=== PATIENT | male | born 1940 | race Caucasian/White ===

== ENCOUNTER 2017-06-27 14:50 | Outpatient (CLI) | payer MEDICARE ==
--- NOTE | 2017-06-27 16:19 | ULT ---
LEFT UPPER EXTREMITY DOPPLER VENOUS ULTRASOUND: Indication: Edema, erythema of left upper extremity. Recent surgery. FINDINGS: Grayscale, color, and spectral analysis was performed of the deep venous system of the left upper ext remity which reveals flow and compressibility without evidence of venous thrombosis. IMPRESSION: No DVT identified within the imaged left upper extremity. POS: WILLIE
== END 2017-06-27 14:51 | disposition home or self-care (01) ==
LOC: ULT 14:50
PROVIDERS: ATTEND Internal Medicine Cardiovascular Disease
DX: R60.9 Edema, unspecified (principal); R20.0 Anesthesia of skin

== ENCOUNTER 2019-02-11 08:22 | Outpatient (CLI) | payer MEDICARE ==
[2019-02-11] MEDS ORDERED: Iopamidol 370 76% 100 ML VIAL ONE (10:01)
--- NOTE | 2019-02-11 11:16 | CT ---
CT ABDOMEN AND PELVIS WITH AND WITHOUT IV CONTRAST: HISTORY: Prostate cancer. FINDINGS: The lung bases are unremarkable. There are coronary artery calcifications. The patient is post cholec ystectomy. The liver, spleen, pancreas and adrenal glands are normal. No calculi are seen in the kidneys, ureters or urinary bladder. No hydroureteronephrosis is seen on e ither side. Post contrast images demonstrate tiny, low density lesions in the kidneys, likely cysts. There is normal contrast excretion into the ureters and urinary bladder. There is mild enlargement of the prostate gland with thickening of the wall of the urinary bladder. No free air, free fluid or lymphadenopathy is seen in the abdomen or pelvis. There are vascular calci fications without evidence of aneurysmal dilatation of the abdominal aorta. There are small bilateral fat-containing inguinal hernias present. Multilevel degenerative changes are present in the spine. T here is a sclerotic focus in the left pedicle of the T10 vertebra. There is colonic diverticulosis. A duodenal diverticulum is present. IMPRESSION: 1. No CT evidence of urinary tract calculi or obstruction. 2. Probable tiny renal cysts. 3. Prostatic enlargement with urinary bladder wall thickening. 4. Colonic diverticulosis. 5. Duodenal diverticulum. 6. Sclerotic focus in the left pedicle of the T10 vertebra. Bone island versus sclerotic metastasis. Further evaluation with bone scan is recommended. POS: OFF
--- NOTE | 2019-02-11 12:38 | NM ---
Radionucleotide bone scan HISTORY: Prostate cancer. Abnormal CT scan. FINDINGS: Heterogeneous uptake at the shoulders and right foot with the appearance of degenerative ch anges. No focal areas of increased radiotracer uptake are apparent. With particular attention to the left T10 pedicle where sclerotic lesion is present on recent CT exam . IMPRESSION: No evidence of metastatic disease. No abnormalities of the T10 pedicles apparent.
== END 2019-02-11 08:23 | disposition home or self-care (01) ==
LOC: CT 08:22
PROVIDERS: ATTEND Urology
DX: C61 Malignant neoplasm of prostate (principal); N40.0 Benign prostatic hyperplasia without lower urinary tract symptoms; N32.89 Other specified disorders of bladder; K57.30 Diverticulosis of large intestine without perforation or abscess without bleeding; K57.10 Diverticulosis of small intestine without perforation or abscess without bleeding; M89.9 Disorder of bone, unspecified
CPT/HCPCS: 74178; 78306; 82565; A9503; Q9967

== ENCOUNTER 2020-05-24 06:43 | Outpatient (CLI) | payer MEDICARE ==
[2020-05-24 18:27] LABS: SARS-CoV-2 PCR by NAA Not Detected (NotDetected)
== END 2020-05-24 06:44 | disposition home or self-care (01) ==
LOC: LABBT 06:43
PROVIDERS: ATTEND Internal Medicine Gastroenterology
DX: Z01.812 Encounter for preprocedural laboratory examination (principal); Z20.822 Contact with and (suspected) exposure to COVID-19
CPT/HCPCS: U0003; U0005; 87635

== ENCOUNTER 2020-05-27 06:22 | Day surgery (SDC) | payer MEDICARE ==
[2020-05-25 12:28] VITALS: BMI 26.6
[2020-05-27 07:21] LABS: #Basophils 0.1 thou/uL (0.0-0.2); #Eosinphils 0.1 thou/uL (0.0-0.7); #Lymphocytes 0.1 thou/uL (1.20-3.40); #Monocytes 0.8 thou/uL (0.11-0.59); #Neutrophils 7.6 thou/uL (1.40-6.50); %Eosinophils 0.6 % (0.0-10.0); %Lymphocytes 1.3 % (21.0-51.0); %Monocytes 8.7 % (0.0-10.0); %Neutrophils 88.5 % (42.0-75.0); Hemoglobin 15.3 g/dL (14.0-18.0); Mean Corpuscular HGB CONC 33.7 g/dL (32.0-36.0); Mean Corpuscular Hemoglobin 31.1 pg (27.0-31.0); Mean Corpuscular Volume 92.2 fL (78.0-98.0); Mean Platelet Volume 5.6 fL (7.4-10.4); Platelet Count 274 thou/uL (130-400); RBC Distribution Width 12.9 % (11.5-14.5); Red Blood Cell (RBC) Count 4.91 mill/uL (4.70-6.10); White Blood Cell (WBC) Count 8.6 thou/uL (4.8-10.8)
[2020-05-27] MEDS ORDERED: Lidocaine 1% PF 5 ML VIAL ONE (08:54)
[2020-05-27] MEDS ORDERED: ePHEDrine 50 MG/ML VIAL ONE (08:54)
[2020-05-27] MEDS ORDERED: PHENYLEPHRINE-NS 100 MCG/ML 10 ML SYRINGE ONE (08:54)
--- NOTE | 2020-05-27 09:55 | OP ---
DATE OF PROCEDURE: 05/27/2020 PROCEDURE PERFORMED: Colonoscopy. PREOPERATIVE DIAGNOSIS: Hematochezia. DESCRIPTION OF PROCEDURE: Informed consent was obtained from the patient. He was sedated with total intravenous anesthesia. The rectal exam was performed and was normal. The colonoscope was advanced to the terminal ileum without difficulty. The mucosa of the terminal ileum was normal. The colonic mucosa revealed diverticulosis through the transverse, descending, and sigmoid colon. There was radiation telangiectasias and a large patch on the anterior surface of the rectal mucosa. This was not actively bleeding. Retroflexed views in the rectum revealed one small hemorrhoid. The remainder of the colonic mucosa was normal. IMPRESSION: 1. Moderate diverticulosis scattered throughout the colon. 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 His hemoglobin was 15.3 today. This requires no further intervention. 3. Small internal hemorrhoid. RECOMMENDATIONS: 1. He should not require future colonoscopy for screening based on age. 2. Follow up in GI clinic as needed. Job ID: [id number]
== END 2020-05-27 10:20 | disposition home or self-care (01) ==
LOC: SDC 06:22
PROVIDERS: ATTEND Internal Medicine Gastroenterology
PROC: 0DJD8ZZ Inspection of Lower Intestinal Tract, Via Natural or Artificial Opening Endoscopic (ICD-10-PCS; principal; 2020-05-27)
DX: K62.7 Radiation proctitis (principal); K92.1 Melena; K57.30 Diverticulosis of large intestine without perforation or abscess without bleeding; K64.8 Other hemorrhoids; I11.0 Hypertensive heart disease with heart failure; I50.9 Heart failure, unspecified; E11.9 Type 2 diabetes mellitus without complications; Z79.82 Long term (current) use of aspirin; Z79.84 Long term (current) use of oral hypoglycemic drugs; Z79.899 Other long term (current) drug therapy; Z95.1 Presence of aortocoronary bypass graft
CPT/HCPCS: 36415; 85025; J3490

== ENCOUNTER 2020-08-31 08:54 | Outpatient (CLI) | payer MEDICARE ==
[2020-08-31 14:50] LABS: INR-International Normal Ratio 0.9; Prothrombin Time 10.1 sec (9.5-12.1)
[2020-08-31 15:08] LABS: Anion Gap 16 mmol/L (10-20); BUN (Urea Nitrogen) 28 mg/dL (8.4-25.7); Calc. Creatinine Clearance 0 mL/min (70-130); Calcium 9.4 mg/dL (7.8-10.44); Carbon Dioxide 25 mmol/L (23-31); Chloride 95 mmol/L (98-107); Glucose 75 mg/dL (83-110); Potassium 5.5 mmol/L (3.5-5.1); Sodium 130 mmol/L (136-145)
[2020-08-31 15:43] LABS: Hemoglobin 14.1 g/dL (13.5-17.5); Mean Corpuscular HGB CONC 32.8 g/dL (32.0-36.0); Mean Corpuscular Hemoglobin 29.2 pg (27.0-33.0); Mean Platelet Volume 8.6 fl (7.4-10.4); Platelet Count 281 10x3/uL (150-450); RBC Distribution Width 15.2 % (11.5-14.5); Red Blood Cell (RBC) Count 4.83 10x6/uL (4.32-5.72); White Blood Cell (WBC) Count 5.4 10x3/uL (3.5-10.5)
[2020-09-01 04:50] LABS: SARS-CoV-2 PCR by NAA Not Detected (NotDetected)
== END 2020-08-31 08:55 | disposition home or self-care (01) ==
LOC: LABBT 08:54
PROVIDERS: ATTEND Surgery
DX: Z01.818 Encounter for other preprocedural examination (principal); Z20.822 Contact with and (suspected) exposure to COVID-19; M54.16 Radiculopathy, lumbar region; M48.062 Spinal stenosis, lumbar region with neurogenic claudication
CPT/HCPCS: 80048; 85027; 85610; 85730; 93005; U0003; U0005; 87635; 93010

== ENCOUNTER 2020-09-03 07:57 | Inpatient (IN) | payer MEDICARE ==
[2020-09-03] MEDS ORDERED: Thrombin 5000 UNITS/5 ML VIAL ONE (09:55)
[2020-09-03] MEDS ORDERED: Fentanyl 100 MCG/2 ML VIAL ONE ×3 (10:06→14:06)
[2020-09-03] MEDS ORDERED: Glycopyrrolate 0.2 MG/ML 5 ML SYRINGE ONE (10:36)
[2020-09-03] MEDS ORDERED: Lidocaine 1% PF 5 ML VIAL ONE (10:36)
[2020-09-03] MEDS ORDERED: Ondansetron PF 4 MG/2 ML Vial ONE (10:36)
[2020-09-03] MEDS ORDERED: PHENYLEPHRINE-NS 100 MCG/ML 10 ML SYRINGE ONE (10:36)
[2020-09-03] MEDS ORDERED: PROPOFOL 200 MG/20 ML VIAL ONE (10:36)
[2020-09-03] MEDS ORDERED: Dexamethasone 20 MG/5 ML VIAL ONE (10:36)
[2020-09-03] MEDS ORDERED: Bisacodyl 10 MG SUPP PR PRN (11:03)
[2020-09-03] MEDS ORDERED: Morphine 2 MG/ML VIAL SLOW IVP PRN (11:03)
[2020-09-03] MEDS ORDERED: Milk Of Magnesia 30 ML UDCUP PO PRN (11:03)
[2020-09-03] MEDS ORDERED: Acetaminophen/Codeine 30-300mg Tablet PO PRN (11:03)
[2020-09-03] MEDS ORDERED: Mag-Al 1200 mg/1200 mg/30 ML UDCUP PO PRN (11:03)
[2020-09-03] MEDS ORDERED: Acetaminophen 500 MG TAB PO PRN (11:06)
[2020-09-03] MEDS ORDERED: Promethazine HCl 12.5 MG in Sodium Chloride 0.9% 50 ML IVPB PRN (13:18)
[2020-09-03] MEDS: Sodium Chloride 0.9% 1,000 ML IV SCH (16:20)
[2020-09-03] MEDS: tiZANidine HCl 4 MG TAB PO PRN (16:24)
[2020-09-03] MEDS: Morphine 4 MG/ML VIAL SLOW IVP PRN (16:31)
[2020-09-03 17:35] VITALS: BMI 21.9
[2020-09-03] MEDS: CEFAZOLIN 2 GM in Premix Bag 1 BAG IVPB SCH (17:36)
[2020-09-03] MEDS: Ondansetron ODT 4 MG TAB SL PRN (18:37)
[2020-09-03] MEDS: traMADol HCl 50 MG TAB PO PRN (18:37)
[2020-09-03] MEDS: HYDROcodone/Acetaminophen 7.5/325 mg Tablet PO PRN (20:34)
[2020-09-03] MEDS: Potassium Chloride 20 MEQ TAB PO SCH (20:45)
[2020-09-03] MEDS: Rosuvastatin 5 MG TAB PO SCH (20:45)
[2020-09-03] MEDS: Pramipexole Di-HCl 0.25 MG TAB PO SCH (20:45)
[2020-09-03] MEDS: Magnesium Oxide 250 MG TAB PO SCH (20:45)
[2020-09-03] MEDS: Ezetimibe 10 MG TAB PO SCH (20:45)
[2020-09-03] MEDS: metFORMIN 500 MG TAB PO SCH (20:45)
[2020-09-03] MEDS: glipiZIDE 5 MG TAB PO SCH (20:46)
[2020-09-03] MEDS: Latanoprost 0.005% Ophth Soln 2.5 ml Bottle EA EYE SCH (22:23)
[2020-09-04] MEDS: traMADol HCl 50 MG TAB PO PRN ×3 (00:23→14:05)
[2020-09-04] MEDS: CEFAZOLIN 2 GM in Premix Bag 1 BAG IVPB SCH (00:26)
[2020-09-04] MEDS: HYDROcodone/Acetaminophen 7.5/325 mg Tablet PO PRN ×3 (03:12→23:51)
[2020-09-04] MEDS: Sodium Chloride 0.9% 1,000 ML IV SCH ×2 (03:15→15:41)
[2020-09-04 06:06] LABS: #Eosinphils 0.1 thou/uL (0.0-0.7); #Lymphocytes 0.2 thou/uL (1.20-3.40); #Monocytes 0.9 thou/uL (0.11-0.59); #Neutrophils 7.2 thou/uL (1.40-6.50); %Basophils 0.1 % (0.0-1.0); %Eosinophils 0.7 % (0.0-10.0); %Lymphocytes 2.5 % (21.0-51.0); %Monocytes 10.6 % (0.0-10.0); %Neutrophils 86.1 % (42.0-75.0); Hemoglobin 12.5 g/dL (14.0-18.0); Mean Corpuscular HGB CONC 33.8 g/dL (32.0-36.0); Mean Corpuscular Hemoglobin 30.8 pg (27.0-31.0); Mean Corpuscular Volume 90.9 fL (78.0-98.0); Mean Platelet Volume 5.9 fL (7.4-10.4); Platelet Count 250 thou/uL (130-400); RBC Distribution Width 13.7 % (11.5-14.5); Red Blood Cell (RBC) Count 4.07 mill/uL (4.70-6.10); White Blood Cell (WBC) Count 8.4 thou/uL (4.8-10.8)
[2020-09-04] MEDS: Levothyroxine 150 MCG TAB PO SCH (06:09)
[2020-09-04] MEDS ORDERED: Dextrose 5% in Water 1,000 ML IV PRN (06:30)
[2020-09-04] MEDS ORDERED: Dextrose 50% Abboject 50 ML SYRINGE IVP PRN (06:30)
[2020-09-04 08:55] LABS: Anion Gap 12 mmol/L (10-20); BUN (Urea Nitrogen) 19 mg/dL (8.4-25.7); Calc. Creatinine Clearance 67 mL/min (70-130); Calcium 8.9 mg/dL (7.8-10.44); Carbon Dioxide 22 mmol/L (23-31); Chloride 97 mmol/L (98-107); Glucose 141 mg/dL (83-110); Potassium 4.3 mmol/L (3.5-5.1); Sodium 127 mmol/L (136-145)
[2020-09-04] MEDS: Metolazone 5 MG TAB PO SCH (09:11)
[2020-09-04] MEDS: Tamsulosin HCl 0.4 MG CAP PO SCH (09:11)
[2020-09-04] MEDS: glipiZIDE 5 MG TAB PO SCH ×2 (09:11→20:10)
[2020-09-04] MEDS: Potassium Chloride 20 MEQ TAB PO SCH ×2 (09:12→20:11)
[2020-09-04] MEDS: metFORMIN 500 MG TAB PO SCH ×2 (09:12→20:10)
[2020-09-04] MEDS: Spironolactone 25 MG TAB PO SCH (09:13)
[2020-09-04] MEDS: tiZANidine HCl 4 MG TAB PO PRN (09:32)
[2020-09-04] MEDS: Torsemide 100 MG TAB PO SCH (11:39)
[2020-09-04] MEDS: Magnesium Oxide 250 MG TAB PO SCH (20:10)
[2020-09-04] MEDS: Rosuvastatin 5 MG TAB PO SCH (20:10)
[2020-09-04] MEDS: Pramipexole Di-HCl 0.25 MG TAB PO SCH (20:11)
[2020-09-04] MEDS: Ezetimibe 10 MG TAB PO SCH (20:11)
[2020-09-04] MEDS: Latanoprost 0.005% Ophth Soln 2.5 ml Bottle EA EYE SCH (20:19)
[2020-09-04] MEDS: Melatonin 3 MG TAB PO PRN (23:51)
[2020-09-05] MEDS: Levothyroxine 150 MCG TAB PO SCH (05:31)
[2020-09-05] MEDS: Morphine 4 MG/ML VIAL SLOW IVP PRN (05:40)
[2020-09-05] MEDS: Ondansetron ODT 4 MG TAB SL PRN (06:00)
[2020-09-05] MEDS: Sodium Chloride 0.9% 1,000 ML IV SCH (07:16)
[2020-09-05] MEDS: tiZANidine HCl 4 MG TAB PO PRN (09:34)
[2020-09-05] MEDS: Torsemide 100 MG TAB PO SCH (09:34)
[2020-09-05] MEDS: Sodium Chloride 1 GM TAB PO SCH ×2 (09:34→20:06)
[2020-09-05] MEDS: Spironolactone 25 MG TAB PO SCH (09:35)
[2020-09-05] MEDS: metFORMIN 500 MG TAB PO SCH ×2 (09:35→19:26)
[2020-09-05] MEDS: glipiZIDE 5 MG TAB PO SCH ×2 (09:35→19:26)
[2020-09-05] MEDS: Potassium Chloride 20 MEQ TAB PO SCH ×2 (09:36→19:25)
[2020-09-05] MEDS: Tamsulosin HCl 0.4 MG CAP PO SCH (09:36)
[2020-09-05 12:06] LABS: Anion Gap 13 mmol/L (10-20); BUN (Urea Nitrogen) 21 mg/dL (8.4-25.7); Calc. Creatinine Clearance 62 mL/min (70-130); Calcium 8.5 mg/dL (7.8-10.44); Carbon Dioxide 26 mmol/L (23-31); Chloride 90 mmol/L (98-107); Glucose 128 mg/dL (83-110); Potassium 3.4 mmol/L (3.5-5.1); Sodium 126 mmol/L (136-145)
[2020-09-05] MEDS: Sodium Chloride 256 MEQ in Sterile Water Injection 936 ML IV SCH (15:36)
[2020-09-05] MEDS: Acetaminophen 325 MG TAB PO PRN (15:36)
[2020-09-05] MEDS: traMADol HCl 50 MG TAB PO PRN (17:36)
[2020-09-05] MEDS: HYDROcodone/Acetaminophen 7.5/325 mg Tablet PO PRN (19:23)
[2020-09-05] MEDS: Rosuvastatin 5 MG TAB PO SCH (19:25)
[2020-09-05] MEDS: Pramipexole Di-HCl 0.25 MG TAB PO SCH (19:25)
[2020-09-05] MEDS: Latanoprost 0.005% Ophth Soln 2.5 ml Bottle EA EYE SCH (19:25)
[2020-09-05] MEDS: Ezetimibe 10 MG TAB PO SCH (19:25)
[2020-09-05] MEDS: Magnesium Oxide 250 MG TAB PO SCH (19:26)
[2020-09-05 20:24] LABS: Sodium 128 mmol/L (136-145)
[2020-09-06] MEDS: HYDROcodone/Acetaminophen 7.5/325 mg Tablet PO PRN ×4 (01:57→22:58)
[2020-09-06] MEDS: Acetaminophen 325 MG TAB PO PRN (03:08)
[2020-09-06] MEDS: traMADol HCl 50 MG TAB PO PRN ×2 (03:08→20:11)
[2020-09-06] MEDS: Levothyroxine 150 MCG TAB PO SCH (05:04)
[2020-09-06 05:55] LABS: Anion Gap 11 mmol/L (10-20); BUN (Urea Nitrogen) 22 mg/dL (8.4-25.7); Calc. Creatinine Clearance 69 mL/min (70-130); Calcium 8.5 mg/dL (7.8-10.44); Carbon Dioxide 28 mmol/L (23-31); Chloride 93 mmol/L (98-107); Glucose 110 mg/dL (83-110); Potassium 3.3 mmol/L (3.5-5.1); Sodium 129 mmol/L (136-145)
[2020-09-06] MEDS: Morphine 4 MG/ML VIAL SLOW IVP PRN ×2 (07:03→22:58)
[2020-09-06] MEDS: Ondansetron ODT 4 MG TAB SL PRN ×2 (07:03→23:01)
[2020-09-06] MEDS: Sodium Chloride 256 MEQ in Sterile Water Injection 936 ML IV SCH (08:30)
[2020-09-06] MEDS: Potassium Chloride 20 MEQ TAB PO SCH ×2 (10:15→20:12)
[2020-09-06] MEDS: Spironolactone 25 MG TAB PO SCH (10:16)
[2020-09-06] MEDS: Sodium Chloride 1 GM TAB PO SCH ×2 (10:16→20:12)
[2020-09-06] MEDS: metFORMIN 500 MG TAB PO SCH ×2 (10:16→20:11)
[2020-09-06] MEDS: Tamsulosin HCl 0.4 MG CAP PO SCH (10:16)
[2020-09-06] MEDS: glipiZIDE 5 MG TAB PO SCH ×2 (10:16→20:11)
[2020-09-06] MEDS: Metolazone 5 MG TAB PO SCH (10:21)
[2020-09-06] MEDS: Torsemide 100 MG TAB PO SCH (10:25)
[2020-09-06] MEDS: Magnesium Oxide 250 MG TAB PO SCH (20:11)
[2020-09-06] MEDS: tiZANidine HCl 4 MG TAB PO PRN (20:11)
[2020-09-06] MEDS: Pramipexole Di-HCl 0.25 MG TAB PO SCH (20:11)
[2020-09-06] MEDS: Rosuvastatin 5 MG TAB PO SCH (20:11)
[2020-09-06] MEDS: Latanoprost 0.005% Ophth Soln 2.5 ml Bottle EA EYE SCH (20:12)
[2020-09-06] MEDS: Ezetimibe 10 MG TAB PO SCH (20:12)
[2020-09-06] MEDS: Melatonin 3 MG TAB PO PRN (22:58)
[2020-09-07] MEDS: Levothyroxine 150 MCG TAB PO SCH (03:48)
[2020-09-07] MEDS: HYDROcodone/Acetaminophen 7.5/325 mg Tablet PO PRN ×3 (03:56→17:17)
[2020-09-07 05:57] LABS: Anion Gap 10 mmol/L (10-20); BUN (Urea Nitrogen) 20 mg/dL (8.4-25.7); Calc. Creatinine Clearance 72 mL/min (70-130); Calcium 8.6 mg/dL (7.8-10.44); Carbon Dioxide 31 mmol/L (23-31); Chloride 90 mmol/L (98-107); Glucose 79 mg/dL (83-110); Potassium 3.7 mmol/L (3.5-5.1); Sodium 127 mmol/L (136-145)
[2020-09-07] MEDS: Sodium Chloride 1 GM TAB PO SCH (10:03)
[2020-09-07] MEDS: Spironolactone 25 MG TAB PO SCH (10:04)
[2020-09-07] MEDS: Tamsulosin HCl 0.4 MG CAP PO SCH (10:04)
[2020-09-07] MEDS: Potassium Chloride 20 MEQ TAB PO SCH (10:04)
[2020-09-07] MEDS: metFORMIN 500 MG TAB PO SCH (10:04)
[2020-09-07] MEDS: glipiZIDE 5 MG TAB PO SCH (10:04)
[2020-09-07] MEDS: Torsemide 100 MG TAB PO SCH (11:01)
[2020-09-07] MEDS: traMADol HCl 50 MG TAB PO PRN (12:52)
[2020-09-07 15:23] LABS: Anion Gap 12 mmol/L (10-20); BUN (Urea Nitrogen) 19 mg/dL (8.4-25.7); Calc. Creatinine Clearance 72 mL/min (70-130); Calcium 9.3 mg/dL (7.8-10.44); Carbon Dioxide 32 mmol/L (23-31); Chloride 89 mmol/L (98-107); Glucose 65 mg/dL (83-110); Potassium 3.8 mmol/L (3.5-5.1); Sodium 129 mmol/L (136-145)
[2020-09-07 16:05] VITALS: BP 104/68; TEMP 98.3
== END 2020-09-07 17:47 | DRG 516 ==
LOC: SDC 07:57 → SURG B 11:03
PROVIDERS: ADMIT Surgery; ATTEND Surgery
PROC: 01NB0ZZ Release Lumbar Nerve, Open Approach (ICD-10-PCS; principal; 2020-09-03)
DX: M48.062 Spinal stenosis, lumbar region with neurogenic claudication (principal); E22.2 Syndrome of inappropriate secretion of antidiuretic hormone; M54.16 Radiculopathy, lumbar region; I11.0 Hypertensive heart disease with heart failure; E11.9 Type 2 diabetes mellitus without complications; Z90.49 Acquired absence of other specified parts of digestive tract; E87.6 Hypokalemia; L89.159 Pressure ulcer of sacral region, unspecified stage; D64.9 Anemia, unspecified
CPT/HCPCS: 36415; 36416; 72020; 80048; 83735; 85025; 93970; A4217; J0690; J1100; J2270; J2405; J2550; J2704; J3010; J3370; Q0162

== ENCOUNTER 2020-09-11 21:13 | Inpatient (IN) | payer MEDICARE ==
[2020-09-11 21:56] LABS: #Lymphocytes 0.2 thou/uL (1.20-3.40); #Monocytes 0.6 thou/uL (0.11-0.59); #Neutrophils 8.7 thou/uL (1.40-6.50); %Eosinophils 0.2 % (0.0-10.0); %Lymphocytes 2.4 % (21.0-51.0); %Monocytes 6.1 % (0.0-10.0); %Neutrophils 91.3 % (42.0-75.0); Hemoglobin 14.2 g/dL (14.0-18.0); Mean Corpuscular HGB CONC 31.4 g/dL (32.0-36.0); Mean Corpuscular Hemoglobin 28.2 pg (27.0-31.0); Mean Corpuscular Volume 89.7 fL (78.0-98.0); Mean Platelet Volume 5.8 fL (7.4-10.4); Platelet Count 322 thou/uL (130-400); RBC Distribution Width 13.6 % (11.5-14.5); Red Blood Cell (RBC) Count 5.02 mill/uL (4.70-6.10); White Blood Cell (WBC) Count 9.6 thou/uL (4.8-10.8)
[2020-09-11 22:08] LABS: Bilirubin Negative (Negative); Blood, Urine Negative (Negative); Clarity Turbid (Clear); Glucose, Urine (Dipstick) Normal (Negative); Ketone, Urine 20 mg/dL (Negative); Leukocyte Negative Leu/uL (Negative); Nitrite Negative (Negative); Protein, Urine (Dipstick) 10 mg/dL (Neg-Trace); Specific Gravity, Urine 1.016 (1.002-1.036); Urobilinogen Normal mg/dL (Less than 2); pH, Urine 8.5 (5.0-9.0)
[2020-09-11 22:18] LABS: ALT (SGPT) 15 U/L (8-55); AST (SGOT) 27 U/L (5-34); Albumin 3.4 g/dL (3.4-4.8); Alkaline Phosphatase 123 U/L (40-110); Anion Gap 16 mmol/L (10-20); BUN (Urea Nitrogen) 17 mg/dL (8.4-25.7); Bilirubin, Total 0.5 mg/dL (0.2-1.2); Calc. Creatinine Clearance 0 mL/min (70-130); Calcium 10.2 mg/dL (7.8-10.44); Carbon Dioxide 27 mmol/L (23-31); Chloride 90 mmol/L (98-107); Globulin 3.3 g/dL (2.4-3.5); Glucose 136 mg/dL (83-110); Potassium 5.9 mmol/L (3.5-5.1); Protein, Total 6.7 g/dL (5.8-8.1); Sodium 127 mmol/L (136-145)
[2020-09-11] MEDS ORDERED: Diltiazem HCl 125 MG, Admixture Fee 1 EACH in Sodium Chloride 0.9% 100 ML IVPB SCH (22:30)
[2020-09-11] MEDS ORDERED: Vancomycin 1 GM/200 ML BAG ONE (22:32)
[2020-09-11] MEDS ORDERED: Cefepime 2 GM VIAL ONE (22:32)
[2020-09-11] MEDS ORDERED: Dextrose 50% Abboject 50 ML SYRINGE SLOW IVP PRN (23:21)
[2020-09-11] MEDS ORDERED: Ondansetron PF 4 MG/2 ML Vial IVP PRN (23:21)
[2020-09-11] MEDS ORDERED: Bisacodyl 5 MG TAB PO PRN (23:21)
[2020-09-11] MEDS ORDERED: Dextrose 5% in Water 1,000 ML IV PRN (23:21)
[2020-09-11] MEDS ORDERED: Ondansetron ODT 4 MG TAB PO PRN (23:21)
[2020-09-11] MEDS ORDERED: Guaifenesin DM 100-10/5 ML UDCUP PO PRN (23:21)
[2020-09-11] MEDS ORDERED: Calcium Carbonate 500 MG ChewTAB PO PRN (23:21)
[2020-09-11] MEDS ORDERED: Loperamide HCl 2 MG CAP PO PRN (23:21)
[2020-09-11] MEDS ORDERED: Senokot S 8.6-50 MG TAB PO PRN (23:21)
[2020-09-11] MEDS ORDERED: Diltiazem 125 MG in Sodium Chloride 0.9% 100 ML IVPB SCH (23:30)
[2020-09-12] MEDS ORDERED: Dextrose 50% Abboject 50 ML SYRINGE SLOW IVP SCH (01:00)
[2020-09-12] MEDS ORDERED: Insulin Regular 300 UNITS/3 ML VIAL IVP SCH (01:00)
[2020-09-12] MEDS: Sodium Chloride 0.9% 1,000 ML IV SCH ×2 (01:00→20:17)
[2020-09-12 01:09] LABS: Lactic Acid 2.3 mmol/L (0.5-2.2)
[2020-09-12 01:25] LABS: Troponin I Less than 0.010 ng/mL (< 0.028)
[2020-09-12 01:52] LABS: Creatinine, Urine 47.1 mg/dL (63-166)
[2020-09-12 01:54] LABS: Anion Gap 17 mmol/L (10-20); BUN (Urea Nitrogen) 16 mg/dL (8.4-25.7); Calc. Creatinine Clearance 79 mL/min (70-130); Calcium 9.5 mg/dL (7.8-10.44); Carbon Dioxide 19 mmol/L (23-31); Chloride 98 mmol/L (98-107); Glucose 70 mg/dL (83-110); Potassium 5.7 mmol/L (3.5-5.1); Sodium 128 mmol/L (136-145)
[2020-09-12 03:13] LABS: SARS-CoV-2 NAA Rapid Test Not Detected (NotDetected)
[2020-09-12 04:10] LABS: Lactic Acid 2.8 mmol/L (0.5-2.2)
[2020-09-12 04:17] LABS: ALT (SGPT) 12 U/L (8-55); AST (SGOT) 22 U/L (5-34); Albumin 2.7 g/dL (3.4-4.8); Alkaline Phosphatase 94 U/L (40-110); Anion Gap 14 mmol/L (10-20); BUN (Urea Nitrogen) 15 mg/dL (8.4-25.7); Bilirubin, Total 0.4 mg/dL (0.2-1.2); Calc. Creatinine Clearance 81 mL/min (70-130); Calcium 9.3 mg/dL (7.8-10.44); Carbon Dioxide 21 mmol/L (23-31); Chloride 99 mmol/L (98-107); Globulin 2.4 g/dL (2.4-3.5); Glucose 70 mg/dL (83-110); Potassium 4.8 mmol/L (3.5-5.1); Protein, Total 5.1 g/dL (5.8-8.1); Sodium 129 mmol/L (136-145)
[2020-09-12 05:00] LABS: Hemoglobin 11.3 g/dL (14.0-18.0); Mean Corpuscular HGB CONC 31.7 g/dL (32.0-36.0); Mean Corpuscular Hemoglobin 28.6 pg (27.0-31.0); Mean Corpuscular Volume 90.2 fL (78.0-98.0); Mean Platelet Volume 5.8 fL (7.4-10.4); Platelet Count 291 thou/uL (130-400); RBC Distribution Width 13.6 % (11.5-14.5); Red Blood Cell (RBC) Count 3.96 mill/uL (4.70-6.10); White Blood Cell (WBC) Count 7.8 thou/uL (4.8-10.8)
[2020-09-12] MEDS: Levothyroxine 150 MCG TAB PO SCH (06:01)
[2020-09-12 07:55] LABS: Troponin I Less than 0.010 ng/mL (< 0.028)
[2020-09-12 08:22] LABS: Lactic Acid 2.1 mmol/L (0.5-2.2)
[2020-09-12] MEDS ORDERED: Furosemide 40 MG/4 ML VIAL SLOW IVP SCH (08:45)
[2020-09-12] MEDS: Enoxaparin Sodium 40 MG/0.4 ML SYRINGE SC SCH (09:13)
[2020-09-12] MEDS: Tamsulosin HCl 0.4 MG CAP PO SCH (09:13)
[2020-09-12] MEDS: Famotidine 20 MG TAB PO SCH ×2 (09:13→20:51)
[2020-09-12] MEDS: Vancomycin HCl 750 MG in Sodium Chloride 0.9% 250 ML 250 ML IVPB SCH ×2 (10:53→20:18)
[2020-09-12] MEDS: Cefepime 1 GM in Sodium Chloride 0.9% 100 ML IVPB SCH ×2 (12:39→22:59)
[2020-09-12 17:23] LABS: Free T4 (Free Thyroxine) 1.75 ng/dL (0.70-1.48)
[2020-09-12] MEDS: Rosuvastatin 5 MG TAB PO SCH (20:51)
[2020-09-12] MEDS: Ezetimibe 10 MG TAB PO SCH (20:51)
[2020-09-12] MEDS: Latanoprost 0.005% Ophth Soln 2.5 ml Bottle EA EYE SCH (20:52)
[2020-09-12] MEDS: Pramipexole Di-HCl 0.25 MG TAB PO SCH (20:52)
[2020-09-12] MEDS: Melatonin 3 MG TAB PO PRN (22:56)
[2020-09-12] MEDS: Acetaminophen 325 MG TAB PO PRN (22:56)
[2020-09-12] MEDS: HumaLOG 300 UNITS/3 ML VIAL SC PRN (23:17)
[2020-09-13] MEDS: Sodium Chloride 0.9% 1,000 ML IV SCH ×2 (01:27→16:59)
[2020-09-13] MEDS: Acetaminophen 325 MG TAB PO PRN ×2 (03:23→21:08)
[2020-09-13] MEDS: Levothyroxine 150 MCG TAB PO SCH (06:35)
[2020-09-13 08:28] LABS: #Eosinphils 0.1 thou/uL (0.0-0.7); #Lymphocytes 0.3 thou/uL (1.20-3.40); #Monocytes 0.6 thou/uL (0.11-0.59); #Neutrophils 5.7 thou/uL (1.40-6.50); %Basophils 0.1 % (0.0-1.0); %Eosinophils 1.2 % (0.0-10.0); %Lymphocytes 3.9 % (21.0-51.0); %Monocytes 8.5 % (0.0-10.0); %Neutrophils 86.3 % (42.0-75.0); Mean Corpuscular HGB CONC 32.5 g/dL (32.0-36.0); Mean Corpuscular Hemoglobin 29.3 pg (27.0-31.0); Mean Corpuscular Volume 90.3 fL (78.0-98.0); Mean Platelet Volume 5.8 fL (7.4-10.4); Platelet Count 295 thou/uL (130-400); RBC Distribution Width 13.6 % (11.5-14.5); Red Blood Cell (RBC) Count 3.74 mill/uL (4.70-6.10); White Blood Cell (WBC) Count 6.6 thou/uL (4.8-10.8)
[2020-09-13 08:30] LABS: Vancomycin, Trough 12.9 ug/mL
[2020-09-13 08:32] LABS: Anion Gap 10 mmol/L (10-20); BUN (Urea Nitrogen) 16 mg/dL (8.4-25.7); Calc. Creatinine Clearance 85 mL/min (70-130); Carbon Dioxide 24 mmol/L (23-31); Chloride 102 mmol/L (98-107); Glucose 170 mg/dL (83-110); Potassium 4.5 mmol/L (3.5-5.1); Sodium 131 mmol/L (136-145)
[2020-09-13] MEDS: Enoxaparin Sodium 40 MG/0.4 ML SYRINGE SC SCH (09:03)
[2020-09-13] MEDS: Tamsulosin HCl 0.4 MG CAP PO SCH (09:03)
[2020-09-13] MEDS: Famotidine 20 MG TAB PO SCH ×2 (09:03→21:09)
[2020-09-13] MEDS: Vancomycin HCl 750 MG in Sodium Chloride 0.9% 250 ML 250 ML IVPB SCH (11:26)
[2020-09-13] MEDS: Vancomycin 1 GM in Premix Bag 1 BAG IVPB SCH ×2 (11:38→23:18)
[2020-09-13] MEDS: Cefepime 1 GM in Sodium Chloride 0.9% 100 ML IVPB SCH ×2 (11:38→22:12)
[2020-09-13] MEDS: HumaLOG 300 UNITS/3 ML VIAL SC PRN (11:45)
[2020-09-13] MEDS: Latanoprost 0.005% Ophth Soln 2.5 ml Bottle EA EYE SCH (21:08)
[2020-09-13] MEDS: Pramipexole Di-HCl 0.25 MG TAB PO SCH (21:09)
[2020-09-13] MEDS: Ezetimibe 10 MG TAB PO SCH (21:09)
[2020-09-13] MEDS: Rosuvastatin 5 MG TAB PO SCH (21:11)
[2020-09-13] MEDS: Melatonin 3 MG TAB PO PRN (21:14)
[2020-09-13] MEDS ORDERED: traMADol HCl 50 MG TAB PO PRN (23:03)
[2020-09-13] MEDS: HYDROcodone/Acetaminophen 7.5/325 mg Tablet PO PRN (23:17)
[2020-09-13] MEDS: traZODone HCl 50 MG TAB PO PRN (23:17)
[2020-09-14 05:06] LABS: Anion Gap 10 mmol/L (10-20); BUN (Urea Nitrogen) 17 mg/dL (8.4-25.7); Calc. Creatinine Clearance 87 mL/min (70-130); Calcium 8.6 mg/dL (7.8-10.44); Carbon Dioxide 23 mmol/L (23-31); Chloride 100 mmol/L (98-107); Glucose 145 mg/dL (83-110); Potassium 4.3 mmol/L (3.5-5.1); Sodium 129 mmol/L (136-145)
[2020-09-14] MEDS: Levothyroxine Sodium 125 MCG TAB PO SCH (05:29)
[2020-09-14] MEDS: Sodium Chloride 0.9% 1,000 ML IV SCH (05:30)
[2020-09-14] MEDS: Enoxaparin Sodium 40 MG/0.4 ML SYRINGE SC SCH (07:54)
[2020-09-14] MEDS: Tamsulosin HCl 0.4 MG CAP PO SCH (07:54)
[2020-09-14] MEDS: Famotidine 20 MG TAB PO SCH ×2 (07:54→20:38)
[2020-09-14] MEDS: HumaLOG 300 UNITS/3 ML VIAL SC PRN ×2 (11:34→18:38)
[2020-09-14] MEDS: Cefepime 1 GM in Sodium Chloride 0.9% 100 ML IVPB SCH (11:34)
[2020-09-14] MEDS: Vancomycin 1 GM in Premix Bag 1 BAG IVPB SCH (11:34)
[2020-09-14] MEDS: Pramipexole Di-HCl 0.25 MG TAB PO SCH (20:38)
[2020-09-14] MEDS: Ezetimibe 10 MG TAB PO SCH (20:38)
[2020-09-14] MEDS: Rosuvastatin 5 MG TAB PO SCH (20:38)
[2020-09-14] MEDS: Latanoprost 0.005% Ophth Soln 2.5 ml Bottle EA EYE SCH (20:39)
[2020-09-14 22:27] LABS: Vancomycin, Trough 15.7 ug/mL
[2020-09-15] MEDS: Levothyroxine Sodium 125 MCG TAB PO SCH (05:27)
[2020-09-15 07:58] LABS: Anion Gap 9 mmol/L (10-20); BUN (Urea Nitrogen) 13 mg/dL (8.4-25.7); Calc. Creatinine Clearance 96 mL/min (70-130); Carbon Dioxide 24 mmol/L (23-31); Chloride 101 mmol/L (98-107); Glucose 148 mg/dL (83-110); Potassium 4.3 mmol/L (3.5-5.1); Sodium 130 mmol/L (136-145)
[2020-09-15] MEDS: Famotidine 20 MG TAB PO SCH ×2 (08:42→21:31)
[2020-09-15] MEDS: Tamsulosin HCl 0.4 MG CAP PO SCH (08:42)
[2020-09-15] MEDS: Enoxaparin Sodium 40 MG/0.4 ML SYRINGE SC SCH (08:42)
[2020-09-15] MEDS: Torsemide 100 MG TAB PO SCH (08:49)
[2020-09-15] MEDS ORDERED: Docusate 100 MG CAP PO SCH (11:15)
[2020-09-15] MEDS: HumaLOG 300 UNITS/3 ML VIAL SC PRN ×3 (11:28→21:40)
[2020-09-15] MEDS: Latanoprost 0.005% Ophth Soln 2.5 ml Bottle EA EYE SCH (21:31)
[2020-09-15] MEDS: Pramipexole Di-HCl 0.25 MG TAB PO SCH (21:31)
[2020-09-15] MEDS: Docusate 100 MG CAP PO SCH (21:31)
[2020-09-15] MEDS: Ezetimibe 10 MG TAB PO SCH (21:31)
[2020-09-15] MEDS: Rosuvastatin 5 MG TAB PO SCH (21:32)
[2020-09-16] MEDS: Melatonin 3 MG TAB PO PRN ×2 (00:44→23:19)
[2020-09-16 05:25] LABS: Anion Gap 13 mmol/L (10-20); BUN (Urea Nitrogen) 19 mg/dL (8.4-25.7); Calc. Creatinine Clearance 85 mL/min (70-130); Calcium 9.1 mg/dL (7.8-10.44); Carbon Dioxide 27 mmol/L (23-31); Chloride 97 mmol/L (98-107); Glucose 159 mg/dL (83-110); Potassium 3.9 mmol/L (3.5-5.1); Sodium 133 mmol/L (136-145)
[2020-09-16] MEDS: Levothyroxine Sodium 125 MCG TAB PO SCH (06:00)
[2020-09-16] MEDS: Torsemide 100 MG TAB PO SCH (08:24)
[2020-09-16] MEDS: Enoxaparin Sodium 40 MG/0.4 ML SYRINGE SC SCH (08:24)
[2020-09-16] MEDS: Tamsulosin HCl 0.4 MG CAP PO SCH (08:25)
[2020-09-16] MEDS: Famotidine 20 MG TAB PO SCH ×2 (08:25→21:41)
[2020-09-16] MEDS: Docusate 100 MG CAP PO SCH ×2 (08:26→21:41)
[2020-09-16] MEDS: HumaLOG 300 UNITS/3 ML VIAL SC PRN ×2 (11:44→21:41)
[2020-09-16 13:14] VITALS: BMI 26.9
[2020-09-16] MEDS: Latanoprost 0.005% Ophth Soln 2.5 ml Bottle EA EYE SCH (21:40)
[2020-09-16] MEDS: Pramipexole Di-HCl 0.25 MG TAB PO SCH (21:41)
[2020-09-16] MEDS: Rosuvastatin 5 MG TAB PO SCH (21:41)
[2020-09-16] MEDS: Ezetimibe 10 MG TAB PO SCH (21:41)
[2020-09-16] MEDS: Acetaminophen 325 MG TAB PO PRN (23:18)
[2020-09-17 05:35] LABS: Anion Gap 13 mmol/L (10-20); BUN (Urea Nitrogen) 17 mg/dL (8.4-25.7); Calc. Creatinine Clearance 83 mL/min (70-130); Calcium 9.6 mg/dL (7.8-10.44); Carbon Dioxide 30 mmol/L (23-31); Chloride 97 mmol/L (98-107); Glucose 159 mg/dL (83-110); Potassium 3.9 mmol/L (3.5-5.1); Sodium 136 mmol/L (136-145)
[2020-09-17] MEDS: Levothyroxine Sodium 125 MCG TAB PO SCH (05:55)
[2020-09-17] MEDS: Famotidine 20 MG TAB PO SCH ×2 (08:44→21:12)
[2020-09-17] MEDS: Enoxaparin Sodium 40 MG/0.4 ML SYRINGE SC SCH (08:44)
[2020-09-17] MEDS: Docusate 100 MG CAP PO SCH ×2 (08:44→21:13)
[2020-09-17] MEDS: Tamsulosin HCl 0.4 MG CAP PO SCH (08:44)
[2020-09-17] MEDS: Torsemide 100 MG TAB PO SCH (08:44)
[2020-09-17] MEDS: HumaLOG 300 UNITS/3 ML VIAL SC PRN (11:55)
[2020-09-17] MEDS: Ezetimibe 10 MG TAB PO SCH (21:12)
[2020-09-17] MEDS: Pramipexole Di-HCl 0.25 MG TAB PO SCH (21:12)
[2020-09-17] MEDS: Melatonin 3 MG TAB PO PRN (21:12)
[2020-09-17] MEDS: Rosuvastatin 5 MG TAB PO SCH (21:12)
[2020-09-17] MEDS: Acetaminophen 325 MG TAB PO PRN (21:12)
[2020-09-17] MEDS: Magnesium Oxide 250 MG TAB PO SCH (21:12)
[2020-09-17] MEDS: Latanoprost 0.005% Ophth Soln 2.5 ml Bottle EA EYE SCH (21:19)
[2020-09-18 05:05] LABS: Anion Gap 13 mmol/L (10-20); BUN (Urea Nitrogen) 18 mg/dL (8.4-25.7); Calc. Creatinine Clearance 87 mL/min (70-130); Calcium 9.3 mg/dL (7.8-10.44); Carbon Dioxide 28 mmol/L (23-31); Chloride 100 mmol/L (98-107); Glucose 169 mg/dL (83-110); Potassium 3.9 mmol/L (3.5-5.1); Sodium 137 mmol/L (136-145)
[2020-09-18] MEDS: Levothyroxine Sodium 125 MCG TAB PO SCH (05:35)
[2020-09-18] MEDS: Enoxaparin Sodium 40 MG/0.4 ML SYRINGE SC SCH (09:47)
[2020-09-18] MEDS: Spironolactone 25 MG TAB PO SCH (09:47)
[2020-09-18] MEDS: Famotidine 20 MG TAB PO SCH ×2 (09:47→21:09)
[2020-09-18] MEDS: Torsemide 100 MG TAB PO SCH (09:47)
[2020-09-18] MEDS: Docusate 100 MG CAP PO SCH ×2 (09:47→21:09)
[2020-09-18] MEDS: Tamsulosin HCl 0.4 MG CAP PO SCH (09:47)
[2020-09-18] MEDS: HumaLOG 300 UNITS/3 ML VIAL SC PRN ×2 (10:51→18:03)
[2020-09-18] MEDS: HYDROcodone/Acetaminophen 7.5/325 mg Tablet PO PRN (21:07)
[2020-09-18] MEDS: Ezetimibe 10 MG TAB PO SCH (21:08)
[2020-09-18] MEDS: Pramipexole Di-HCl 0.25 MG TAB PO SCH (21:08)
[2020-09-18] MEDS: Melatonin 3 MG TAB PO PRN (21:08)
[2020-09-18] MEDS: traZODone HCl 50 MG TAB PO PRN (21:08)
[2020-09-18] MEDS: Magnesium Oxide 250 MG TAB PO SCH (21:09)
[2020-09-18] MEDS: Rosuvastatin 5 MG TAB PO SCH (21:09)
[2020-09-18] MEDS: Latanoprost 0.005% Ophth Soln 2.5 ml Bottle EA EYE SCH (21:11)
[2020-09-19 05:18] LABS: Anion Gap 12 mmol/L (10-20); BUN (Urea Nitrogen) 18 mg/dL (8.4-25.7); Calc. Creatinine Clearance 83 mL/min (70-130); Calcium 9.4 mg/dL (7.8-10.44); Carbon Dioxide 26 mmol/L (23-31); Chloride 100 mmol/L (98-107); Glucose 206 mg/dL (83-110); Potassium 4.5 mmol/L (3.5-5.1); Sodium 133 mmol/L (136-145)
[2020-09-19] MEDS: Levothyroxine Sodium 125 MCG TAB PO SCH (05:53)
[2020-09-19] MEDS: Spironolactone 25 MG TAB PO SCH (09:05)
[2020-09-19] MEDS: Docusate 100 MG CAP PO SCH (09:05)
[2020-09-19] MEDS: Famotidine 20 MG TAB PO SCH (09:05)
[2020-09-19] MEDS: Enoxaparin Sodium 40 MG/0.4 ML SYRINGE SC SCH (09:06)
[2020-09-19] MEDS: Tamsulosin HCl 0.4 MG CAP PO SCH (09:06)
[2020-09-19] MEDS: Torsemide 100 MG TAB PO SCH (09:07)
[2020-09-19] MEDS: HumaLOG 300 UNITS/3 ML VIAL SC PRN (11:34)
[2020-09-19 15:59] VITALS: BP 105/60; TEMP 98.2
== END 2020-09-19 15:59 | DRG 308 ==
LOC: ERS 21:13 → IMCU/EMU 23:29 → 2NO 09-14 03:35
PROVIDERS: ADMIT Internal Medicine; ATTEND Internal Medicine
PROC: 5A2204Z Restoration of Cardiac Rhythm, Single (ICD-10-PCS; principal; 2020-09-11)
PROC: 4B02XTZ Measurement of Cardiac Defibrillator, External Approach (ICD-10-PCS; 2020-09-12)
DX: I47.1 Supraventricular tachycardia (principal); G92 Toxic encephalopathy; I50.33 Acute on chronic diastolic (congestive) heart failure; E87.2 Acidosis; E87.1 Hypo-osmolality and hyponatremia; F05 Delirium due to known physiological condition; L97.429 Non-pressure chronic ulcer of left heel and midfoot with unspecified severity; L97.419 Non-pressure chronic ulcer of right heel and midfoot with unspecified severity; Z95.810 Presence of automatic (implantable) cardiac defibrillator; Z20.822 Contact with and (suspected) exposure to COVID-19; N40.0 Benign prostatic hyperplasia without lower urinary tract symptoms; I11.0 Hypertensive heart disease with heart failure; E78.5 Hyperlipidemia, unspecified; H40.9 Unspecified glaucoma; E87.5 Hyperkalemia; I25.10 Atherosclerotic heart disease of native coronary artery without angina pectoris; E03.9 Hypothyroidism, unspecified; H91.90 Unspecified hearing loss, unspecified ear; E11.621 Type 2 diabetes mellitus with foot ulcer; T42.4X5A Adverse effect of benzodiazepines, initial encounter; Z88.5 Allergy status to narcotic agent; Z88.8 Allergy status to other drugs, medicaments and biological substances; Z79.899 Other long term (current) drug therapy; Z79.84 Long term (current) use of oral hypoglycemic drugs; Z79.890 Hormone replacement therapy; Z98.890 Other specified postprocedural states; Z90.49 Acquired absence of other specified parts of digestive tract; Z95.1 Presence of aortocoronary bypass graft
CPT/HCPCS: 0240U; 36415; 36416; 70450; 71045; 80048; 80202; 82570; 83605; 83880; 83930; 83935; 84300; 84439; 84443; 84481; 84484; 85025; 87040; 87086; 93005; 93010; 93306; 94760; 96365; 96367; 96368; 96376; J0610; J0692; J1650; J1815; J1940; J2405; J3370; J3490; J7050

== ENCOUNTER 2020-10-08 17:15 | Inpatient (IN) | payer MEDICARE, OTHER ==
[2020-10-08 19:00] LABS: #Lymphocytes 0.2 thou/uL (1.20-3.40); #Monocytes 0.7 thou/uL (0.11-0.59); #Neutrophils 14.6 thou/uL (1.40-6.50); %Eosinophils 0.2 % (0.0-10.0); %Lymphocytes 1.4 % (21.0-51.0); %Monocytes 4.5 % (0.0-10.0); %Neutrophils 93.9 % (42.0-75.0); Hemoglobin 13.3 g/dL (14.0-18.0); Mean Corpuscular HGB CONC 33.7 g/dL (32.0-36.0); Mean Corpuscular Hemoglobin 29.4 pg (27.0-31.0); Mean Corpuscular Volume 87.1 fL (78.0-98.0); Mean Platelet Volume 5.7 fL (7.4-10.4); Platelet Count 331 thou/uL (130-400); Red Blood Cell (RBC) Count 4.53 mill/uL (4.70-6.10); White Blood Cell (WBC) Count 15.6 thou/uL (4.8-10.8)
[2020-10-08 19:07] LABS: Bilirubin Negative (Negative); Blood, Urine Negative (Negative); Clarity Clear (Clear); Glucose, Urine (Dipstick) Normal (Negative); Ketone, Urine Negative (Negative); Leukocyte Negative Leu/uL (Negative); Nitrite Negative (Negative); Protein, Urine (Dipstick) Negative (Neg-Trace); Urobilinogen Normal mg/dL (Less than 2)
[2020-10-08 19:23] LABS: ALT (SGPT) 17 U/L (8-55); AST (SGOT) 27 U/L (5-34); Albumin 3.3 g/dL (3.4-4.8); Alkaline Phosphatase 79 U/L (40-110); Anion Gap 15 mmol/L (10-20); BUN (Urea Nitrogen) 36 mg/dL (8.4-25.7); Bilirubin, Total 0.2 mg/dL (0.2-1.2); CK (CPK) 44 U/L (30-200); Calc. Creatinine Clearance 0 mL/min (70-130); Calcium 9.6 mg/dL (7.8-10.44); Carbon Dioxide 25 mmol/L (23-31); Chloride 91 mmol/L (98-107); Globulin 2.3 g/dL (2.4-3.5); Glucose 77 mg/dL (83-110); Magnesium 2.5 mg/dL (1.6-2.6); Potassium 5.2 mmol/L (3.5-5.1); Protein, Total 5.6 g/dL (5.8-8.1); Sodium 126 mmol/L (136-145)
[2020-10-08 22:07] LABS: Lactic Acid 1.6 mmol/L (0.5-2.2)
[2020-10-08] MEDS ORDERED: Acetaminophen 325 MG TAB PO PRN (23:08)
[2020-10-08] MEDS ORDERED: HumaLOG 300 UNITS/3 ML VIAL SC PRN ×2 (23:11)
[2020-10-08] MEDS ORDERED: Dextrose 50% Abboject 50 ML SYRINGE SLOW IVP PRN (23:11)
[2020-10-08] MEDS ORDERED: Dextrose 5% in Water 1,000 ML IV PRN (23:11)
[2020-10-08] MEDS ORDERED: Cefepime 2 GM VIAL ONE (23:14)
[2020-10-08 23:49] VITALS: BMI 23.3
[2020-10-08] MEDS ORDERED: Vancomycin 1 GM in Premix Bag 1 BAG IVPB SCH (23:59)
[2020-10-08] MEDS ORDERED: Sodium Chloride 0.9% 1,000 ML IV SCH (23:59)
[2020-10-09] MEDS ORDERED: Ondansetron PF 4 MG/2 ML Vial ONE (00:19)
[2020-10-09] MEDS ORDERED: traMADol HCl 50 MG TAB ONE (00:19)
[2020-10-09] MEDS ORDERED: Vancomycin 1 GM/200 ML BAG ONE (00:24)
[2020-10-09] MEDS: traMADol HCl 50 MG TAB PO PRN ×2 (00:41→22:42)
[2020-10-09] MEDS: Ondansetron PF 4 MG/2 ML Vial IVP PRN ×2 (00:42→22:42)
[2020-10-09 04:29] LABS: #Lymphocytes 0.3 thou/uL (1.20-3.40); #Monocytes 0.8 thou/uL (0.11-0.59); #Neutrophils 6.9 thou/uL (1.40-6.50); %Eosinophils 0.5 % (0.0-10.0); %Monocytes 9.5 % (0.0-10.0); %Neutrophils 86.1 % (42.0-75.0); Hemoglobin 11.6 g/dL (14.0-18.0); Mean Corpuscular HGB CONC 33.1 g/dL (32.0-36.0); Mean Corpuscular Hemoglobin 28.8 pg (27.0-31.0); Mean Platelet Volume 5.6 fL (7.4-10.4); Platelet Count 270 thou/uL (130-400); RBC Distribution Width 14.2 % (11.5-14.5); Red Blood Cell (RBC) Count 4.04 mill/uL (4.70-6.10)
[2020-10-09 04:50] LABS: Anion Gap 11 mmol/L (10-20); BUN (Urea Nitrogen) 30 mg/dL (8.4-25.7); Calc. Creatinine Clearance 54 mL/min (70-130); Calcium 8.9 mg/dL (7.8-10.44); Carbon Dioxide 24 mmol/L (23-31); Chloride 96 mmol/L (98-107); Glucose 112 mg/dL (83-110); Potassium 4.5 mmol/L (3.5-5.1); Sodium 126 mmol/L (136-145)
[2020-10-09] MEDS ORDERED: Cefepime 1 GM VIAL ONE (08:37)
[2020-10-09] MEDS: Cefepime 1 GM in Sodium Chloride 0.9% 100 ML IVPB SCH ×2 (09:09→22:40)
[2020-10-09 09:19] LABS: Lactic Acid 1.2 mmol/L (0.5-2.2)
[2020-10-09 09:25] LABS: Anion Gap 11 mmol/L (10-20); BUN (Urea Nitrogen) 24 mg/dL (8.4-25.7); Calc. Creatinine Clearance 51 mL/min (70-130); Calcium 9.1 mg/dL (7.8-10.44); Carbon Dioxide 24 mmol/L (23-31); Chloride 95 mmol/L (98-107); Glucose 163 mg/dL (83-110); Magnesium 2.2 mg/dL (1.6-2.6); Potassium 4.5 mmol/L (3.5-5.1); Sodium 125 mmol/L (136-145)
[2020-10-09 15:24] LABS: SARS-CoV-2 PCR by NAA Not Detected (NotDetected)
[2020-10-09 15:42] LABS: Potassium 4.5 mmol/L (3.5-5.1)
[2020-10-09] MEDS: Sodium Chloride 0.9% 1,000 ML IV SCH (17:49)
[2020-10-09] MEDS: Ezetimibe 10 MG TAB PO SCH (22:41)
[2020-10-09] MEDS: Latanoprost 0.005% Ophth Soln 2.5 ml Bottle EA EYE SCH (22:41)
[2020-10-09] MEDS: Magnesium Oxide 250 MG TAB PO SCH (22:41)
[2020-10-09] MEDS: Pramipexole Di-HCl 0.25 MG TAB PO SCH (22:42)
[2020-10-09] MEDS: Rosuvastatin 5 MG TAB PO SCH (22:42)
[2020-10-09] MEDS ORDERED: Vancomycin HCl 750 MG in Sodium Chloride 0.9% 250 ML 250 ML IVPB SCH (23:59)
[2020-10-10 05:07] LABS: #Eosinphils 0.1 thou/uL (0.0-0.7); #Lymphocytes 0.2 thou/uL (1.20-3.40); #Monocytes 0.5 thou/uL (0.11-0.59); #Neutrophils 5.7 thou/uL (1.40-6.50); %Basophils 0.5 % (0.0-1.0); %Eosinophils 1.7 % (0.0-10.0); %Lymphocytes 2.4 % (21.0-51.0); %Monocytes 7.8 % (0.0-10.0); %Neutrophils 87.6 % (42.0-75.0); Hemoglobin 10.9 g/dL (14.0-18.0); Mean Corpuscular HGB CONC 33.6 g/dL (32.0-36.0); Mean Corpuscular Hemoglobin 29.6 pg (27.0-31.0); Mean Corpuscular Volume 88.3 fL (78.0-98.0); Mean Platelet Volume 5.8 fL (7.4-10.4); Platelet Count 254 thou/uL (130-400); RBC Distribution Width 14.2 % (11.5-14.5); Red Blood Cell (RBC) Count 3.67 mill/uL (4.70-6.10); White Blood Cell (WBC) Count 6.5 thou/uL (4.8-10.8)
[2020-10-10 05:45] LABS: Anion Gap 9 mmol/L (10-20); BUN (Urea Nitrogen) 16 mg/dL (8.4-25.7); Calc. Creatinine Clearance 76 mL/min (70-130); Calcium 8.7 mg/dL (7.8-10.44); Carbon Dioxide 25 mmol/L (23-31); Chloride 100 mmol/L (98-107); Glucose 116 mg/dL (83-110); Magnesium 2.1 mg/dL (1.6-2.6); Potassium 4.3 mmol/L (3.5-5.1); Sodium 130 mmol/L (136-145)
[2020-10-10 05:51] LABS: Phosphorus 2.3 mg/dL (2.3-4.7)
[2020-10-10] MEDS: Levothyroxine Sodium 125 MCG TAB PO SCH (06:03)
[2020-10-10] MEDS: Cefepime 1 GM in Sodium Chloride 0.9% 100 ML IVPB SCH (10:21)
[2020-10-10] MEDS: traMADol HCl 50 MG TAB PO PRN ×2 (12:37→21:16)
[2020-10-10] MEDS: Sodium Chloride 0.9% 1,000 ML IV SCH (12:37)
[2020-10-10] MEDS ORDERED: Aspirin 81 mg Enteric Coated Tablet PO SCH (14:45)
[2020-10-10] MEDS ORDERED: Tamsulosin HCl 0.4 MG CAP PO SCH (14:45)
[2020-10-10 16:46] LABS: Potassium 4.7 mmol/L (3.5-5.1)
[2020-10-10] MEDS: Rosuvastatin 5 MG TAB PO SCH (21:15)
[2020-10-10] MEDS: Latanoprost 0.005% Ophth Soln 2.5 ml Bottle EA EYE SCH (21:15)
[2020-10-10] MEDS: Magnesium Oxide 250 MG TAB PO SCH (21:15)
[2020-10-10] MEDS: Ezetimibe 10 MG TAB PO SCH (21:15)
[2020-10-10] MEDS: Pramipexole Di-HCl 0.25 MG TAB PO SCH (21:15)
[2020-10-10] MEDS: Ondansetron PF 4 MG/2 ML Vial IVP PRN (21:16)
[2020-10-10] MEDS ORDERED: Melatonin 3 MG TAB PO PRN (22:34)
[2020-10-11 05:01] LABS: #Basophils 0.1 thou/uL (0.0-0.2); #Eosinphils 0.1 thou/uL (0.0-0.7); #Lymphocytes 0.1 thou/uL (1.20-3.40); #Monocytes 0.5 thou/uL (0.11-0.59); #Neutrophils 4.7 thou/uL (1.40-6.50); %Basophils 1.3 % (0.0-1.0); %Eosinophils 2.1 % (0.0-10.0); %Lymphocytes 2.2 % (21.0-51.0); %Monocytes 8.5 % (0.0-10.0); Hemoglobin 11.1 g/dL (14.0-18.0); Mean Corpuscular HGB CONC 32.8 g/dL (32.0-36.0); Mean Corpuscular Hemoglobin 29.3 pg (27.0-31.0); Mean Corpuscular Volume 89.5 fL (78.0-98.0); Mean Platelet Volume 5.6 fL (7.4-10.4); Platelet Count 251 thou/uL (130-400); RBC Distribution Width 14.2 % (11.5-14.5); White Blood Cell (WBC) Count 5.5 thou/uL (4.8-10.8)
[2020-10-11 05:30] LABS: Anion Gap 7 mmol/L (10-20); BUN (Urea Nitrogen) 12 mg/dL (8.4-25.7); Calc. Creatinine Clearance 88 mL/min (70-130); Calcium 8.6 mg/dL (7.8-10.44); Carbon Dioxide 24 mmol/L (23-31); Chloride 103 mmol/L (98-107); Glucose 111 mg/dL (83-110); Potassium 4.4 mmol/L (3.5-5.1); Sodium 130 mmol/L (136-145)
[2020-10-11] MEDS: Levothyroxine Sodium 125 MCG TAB PO SCH (06:00)
[2020-10-11] MEDS ORDERED: Enoxaparin Sodium 30 MG/0.3 ML SYRINGE SC SCH (09:00)
[2020-10-11] MEDS ORDERED: Aspirin 81 mg Enteric Coated Tablet PO SCH (09:00)
[2020-10-11] MEDS ORDERED: Tamsulosin HCl 0.4 MG CAP PO SCH (09:00)
[2020-10-11 12:00] VITALS: TEMP 97.6
[2020-10-11 12:47] VITALS: BP 116/57
== END 2020-10-11 15:27 | disposition home health service (06) | DRG 682 ==
LOC: ERS 17:15 → ERHOLD 22:58 → 2NO 10-09 10:35
PROVIDERS: ADMIT Internal Medicine; ATTEND Family Medicine
DX: N17.9 Acute kidney failure, unspecified (principal); L89.623 Pressure ulcer of left heel, stage 3; E87.1 Hypo-osmolality and hyponatremia; I50.32 Chronic diastolic (congestive) heart failure; Z20.822 Contact with and (suspected) exposure to COVID-19; S00.01XA Abrasion of scalp, initial encounter; E11.9 Type 2 diabetes mellitus without complications; E78.5 Hyperlipidemia, unspecified; E03.9 Hypothyroidism, unspecified; D64.9 Anemia, unspecified; N40.0 Benign prostatic hyperplasia without lower urinary tract symptoms; D72.829 Elevated white blood cell count, unspecified; I11.0 Hypertensive heart disease with heart failure; W01.0XXA Fall on same level from slipping, tripping and stumbling without subsequent striking against object, initial encounter; E87.5 Hyperkalemia; Z85.46 Personal history of malignant neoplasm of prostate; Z90.49 Acquired absence of other specified parts of digestive tract; Z85.828 Personal history of other malignant neoplasm of skin; Z95.810 Presence of automatic (implantable) cardiac defibrillator; Z88.5 Allergy status to narcotic agent; Z88.8 Allergy status to other drugs, medicaments and biological substances; Z79.899 Other long term (current) drug therapy; Z79.84 Long term (current) use of oral hypoglycemic drugs; Z95.1 Presence of aortocoronary bypass graft; Z80.9 Family history of malignant neoplasm, unspecified; Z82.49 Family history of ischemic heart disease and other diseases of the circulatory system; Z83.3 Family history of diabetes mellitus; Z87.891 Personal history of nicotine dependence
CPT/HCPCS: 36415; 36416; 70450; 71045; 80048; 80053; 81003; 82550; 83605; 83735; 83880; 83930; 83935; 84100; 84145; 84300; 84439; 84443; 84484; 85025; 87040; 87149; 93005; 96365; 96366; J0692; J1815; J2405; J3370; J3490; U0003; U0005

== ENCOUNTER 2021-12-02 17:54 | Inpatient (IN) | payer MEDICARE ==
[2021-12-02] MEDS ORDERED: Cosyntropin 250 MCG VIAL SLOW IVP SCH (20:00)
[2021-12-02 20:50] LABS: #Basophils 0.1 thou/uL (0.0-0.2); #Lymphocytes 0.1 thou/uL (1.20-3.40); #Monocytes 0.7 thou/uL (0.11-0.59); %Basophils 0.6 % (0.0-1.0); %Eosinophils 0.2 % (0.0-10.0); %Lymphocytes 1.4 % (21.0-51.0); %Monocytes 6.6 % (0.0-10.0); %Neutrophils 91.2 % (42.0-75.0); Hemoglobin 14.3 g/dL (14.0-18.0); Mean Corpuscular HGB CONC 32.6 g/dL (32.0-36.0); Mean Corpuscular Hemoglobin 29.3 pg (27.0-31.0); Mean Corpuscular Volume 89.6 fL (78.0-98.0); Platelet Count 185 thou/uL (130-400); Red Blood Cell (RBC) Count 4.89 mill/uL (4.70-6.10); White Blood Cell (WBC) Count 9.8 thou/uL (4.8-10.8)
[2021-12-02 21:11] LABS: ALT (SGPT) 10 U/L (8-55); AST (SGOT) 26 U/L (5-34); Albumin 3.7 g/dL (3.4-4.8); Alkaline Phosphatase 82 U/L (40-110); Anion Gap 19 mmol/L (10-20); BUN (Urea Nitrogen) 51 mg/dL (8.4-25.7); Bilirubin, Total 0.3 mg/dL (0.2-1.2); Calc. Creatinine Clearance 39 mL/min (70-130); Calcium 9.6 mg/dL (7.8-10.44); Carbon Dioxide 21 mmol/L (23-31); Chloride 84 mmol/L (98-107); Estimated GFR 62; Globulin 2.5 g/dL (2.4-3.5); Glucose 145 mg/dL (83-110); Potassium 4.6 mmol/L (3.5-5.1); Protein, Total 6.2 g/dL (5.8-8.1)
[2021-12-02] MEDS ORDERED: Acetaminophen 500 MG TAB PO PRN (21:21)
[2021-12-02 21:28] LABS: Sodium 119 mmol/L (136-145)
[2021-12-02] MEDS ORDERED: Latanoprost 0.005% Ophth Soln 2.5 ml Bottle EA EYE SCH (22:00)
[2021-12-02] MEDS ORDERED: Rosuvastatin 5 MG TAB PO SCH (22:00)
[2021-12-02] MEDS ORDERED: Magnesium Oxide 250 MG TAB PO SCH (23:00)
[2021-12-02] MEDS: Acetaminophen 500 MG TAB PO PRN (23:07)
[2021-12-02] MEDS ORDERED: SODIUM BICARBONATE IV SCH (23:30)
[2021-12-02] MEDS ORDERED: Carbidopa/Levodopa CR 50-200 mg Tablet PO SCH ×2 (23:30→23:59)
[2021-12-02] MEDS ORDERED: SODIUM CHLORIDE 0.9% IV SCH (23:30)
[2021-12-02 23:34] LABS: Magnesium 2.2 mg/dL (1.6-2.6)
[2021-12-02] MEDS: Sodium Bicarbonate 150 MEQ in Dextrose 5% in Water 100 ML IV SCH ×2 (23:53→23:59)
[2021-12-03 04:53] LABS: Anion Gap 12 mmol/L (10-20); BUN (Urea Nitrogen) 47 mg/dL (8.4-25.7); Calc. Creatinine Clearance 50 mL/min (70-130); Calcium 9.3 mg/dL (7.8-10.44); Carbon Dioxide 31 mmol/L (23-31); Chloride 83 mmol/L (98-107); Estimated GFR 82; Glucose 114 mg/dL (83-110); Magnesium 2.3 mg/dL (1.6-2.6); Potassium 3.4 mmol/L (3.5-5.1); Sodium 123 mmol/L (136-145)
[2021-12-03 05:01] LABS: T4 10.3 ug/dL (4.87-11.72); Thyroid Stimulating Hormone 0.0136 uIU/mL (0.35-4.94)
[2021-12-03] MEDS: Levothyroxine 150 MCG TAB PO SCH (05:40)
[2021-12-03] MEDS ORDERED: Potassium Chloride 20 MEQ TAB PO SCH (08:00)
[2021-12-03] MEDS ORDERED: Magnesium Oxide 250 MG TAB PO SCH ×2 (09:00→21:00)
[2021-12-03] MEDS ORDERED: Torsemide 100 MG TAB PO SCH ×3 (09:00→21:00)
[2021-12-03] MEDS ORDERED: Tamsulosin HCl 0.4 MG CAP PO SCH (09:00)
[2021-12-03] MEDS ORDERED: Carbidopa/Levodopa CR 50-200 mg Tablet PO SCH (09:00)
[2021-12-03] MEDS: Spironolactone 25 MG TAB PO SCH (09:15)
[2021-12-03] MEDS: Potassium Chloride 10 MEQ TAB PO SCH (09:20)
[2021-12-03] MEDS: Multivitamin W/ Minerals 1 TAB PO SCH (09:20)
[2021-12-03] MEDS: Carbidopa/Levodopa CR 50-200 mg Tablet PO SCH ×2 (09:20→21:37)
[2021-12-03] MEDS: Aspirin 81 mg Enteric Coated Tablet PO SCH (09:20)
[2021-12-03] MEDS: metFORMIN XR 500 MG TAB PO SCH (09:20)
[2021-12-03] MEDS: Allopurinol 300 MG TAB PO SCH (09:20)
[2021-12-03] MEDS: Enoxaparin Sodium 40 MG/0.4 ML SYRINGE SC SCH (09:21)
[2021-12-03] MEDS: Tamsulosin HCl 0.4 MG CAP PO SCH (10:58)
[2021-12-03] MEDS ORDERED: Sodium Chloride 0.9% 250 ML 250 ML IVPB SCH (12:00)
[2021-12-03] MEDS: Acetaminophen 500 MG TAB PO SCH (21:36)
[2021-12-03] MEDS: Rosuvastatin 5 MG TAB PO SCH (21:37)
[2021-12-03] MEDS: Magnesium Oxide 250 MG TAB PO SCH (21:37)
[2021-12-03] MEDS: Latanoprost 0.005% Ophth Soln 2.5 ml Bottle EA EYE SCH (21:38)
[2021-12-04 05:11] LABS: Anion Gap 12 mmol/L (10-20); BUN (Urea Nitrogen) 25 mg/dL (8.4-25.7); Calc. Creatinine Clearance 65 mL/min (70-130); Calcium 8.9 mg/dL (7.8-10.44); Carbon Dioxide 24 mmol/L (23-31); Chloride 90 mmol/L (98-107); Estimated GFR 92; Glucose 113 mg/dL (83-110); Magnesium 2.1 mg/dL (1.6-2.6); Potassium 4.1 mmol/L (3.5-5.1); Sodium 122 mmol/L (136-145)
[2021-12-04] MEDS: Levothyroxine 150 MCG TAB PO SCH (05:55)
[2021-12-04] MEDS: Spironolactone 25 MG TAB PO SCH (07:50)
[2021-12-04] MEDS: Enoxaparin Sodium 40 MG/0.4 ML SYRINGE SC SCH (07:50)
[2021-12-04] MEDS: Potassium Chloride 10 MEQ TAB PO SCH (07:50)
[2021-12-04] MEDS: Multivitamin W/ Minerals 1 TAB PO SCH (07:52)
[2021-12-04] MEDS: metFORMIN XR 500 MG TAB PO SCH (07:54)
[2021-12-04] MEDS: Carbidopa/Levodopa CR 50-200 mg Tablet PO SCH ×2 (07:54→22:15)
[2021-12-04] MEDS: Aspirin 81 mg Enteric Coated Tablet PO SCH (07:54)
[2021-12-04] MEDS: Allopurinol 300 MG TAB PO SCH (07:59)
[2021-12-04] MEDS: Torsemide 100 MG TAB PO SCH (12:38)
[2021-12-04] MEDS: Acetaminophen 500 MG TAB PO SCH (22:15)
[2021-12-04] MEDS: Magnesium Oxide 250 MG TAB PO SCH (22:16)
[2021-12-04] MEDS: Latanoprost 0.005% Ophth Soln 2.5 ml Bottle EA EYE SCH (22:16)
[2021-12-04] MEDS: Rosuvastatin 5 MG TAB PO SCH (22:16)
[2021-12-05] MEDS: Levothyroxine 150 MCG TAB PO SCH (05:10)
[2021-12-05] MEDS: Acetaminophen 500 MG TAB PO PRN (05:10)
[2021-12-05 05:35] LABS: Chloride 94 mmol/L (98-107); Potassium 4.3 mmol/L (3.5-5.1); Sodium 124 mmol/L (136-145)
[2021-12-05 05:36] LABS: Calcium 8.9 mg/dL (7.8-10.44); Glucose 103 mg/dL (83-110)
[2021-12-05 05:38] LABS: Carbon Dioxide 19 mmol/L (23-31)
[2021-12-05 05:40] LABS: BUN (Urea Nitrogen) 21 mg/dL (8.4-25.7); Calc. Creatinine Clearance 68 mL/min (70-130); Estimated GFR 93
[2021-12-05 05:42] LABS: Magnesium 1.9 mg/dL (1.6-2.6)
[2021-12-05 06:13] LABS: Anion Gap 15 mmol/L (10-20)
[2021-12-05] MEDS: Carbidopa/Levodopa CR 50-200 mg Tablet PO SCH ×2 (09:26→21:48)
[2021-12-05] MEDS: Multivitamin W/ Minerals 1 TAB PO SCH (09:26)
[2021-12-05] MEDS: metFORMIN XR 500 MG TAB PO SCH (09:26)
[2021-12-05] MEDS: Allopurinol 300 MG TAB PO SCH (09:27)
[2021-12-05] MEDS: Potassium Chloride 10 MEQ TAB PO SCH (09:27)
[2021-12-05] MEDS: Spironolactone 25 MG TAB PO SCH (09:28)
[2021-12-05] MEDS: Aspirin 81 mg Enteric Coated Tablet PO SCH (09:29)
[2021-12-05] MEDS: Enoxaparin Sodium 40 MG/0.4 ML SYRINGE SC SCH (09:29)
[2021-12-05] MEDS ORDERED: Lactated Ringer's 1,000 ML IV SCH (10:15)
[2021-12-05] MEDS ORDERED: Sodium Bicarbonate 150 MEQ in Dextrose 5% in Water 100 ML IV SCH (10:15)
[2021-12-05] MEDS ORDERED: Lactated Ringer's 500 ML IV SCH (11:00)
[2021-12-05] MEDS: Torsemide 100 MG TAB PO SCH (12:00)
[2021-12-05] MEDS ORDERED: Sodium Bicarbonate 150 MEQ in Dextrose 5% in Water 250 ML IV SCH (15:00)
[2021-12-05 16:03] LABS: SARS-CoV-2 NAA Rapid Test Not Detected (NotDetected)
[2021-12-05 19:11] LABS: Anion Gap 15 mmol/L (10-20); BUN (Urea Nitrogen) 25 mg/dL (8.4-25.7); Calc. Creatinine Clearance 45 mL/min (70-130); Calcium 9.2 mg/dL (7.8-10.44); Carbon Dioxide 29 mmol/L (23-31); Chloride 93 mmol/L (98-107); Estimated GFR 71; Glucose 204 mg/dL (83-110); Potassium 3.9 mmol/L (3.5-5.1); Sodium 133 mmol/L (136-145)
[2021-12-05] MEDS: Rosuvastatin 5 MG TAB PO SCH (21:47)
[2021-12-05] MEDS: Acetaminophen 500 MG TAB PO SCH (21:48)
[2021-12-05] MEDS: Magnesium Oxide 250 MG TAB PO SCH (21:48)
[2021-12-05] MEDS: Latanoprost 0.005% Ophth Soln 2.5 ml Bottle EA EYE SCH (21:50)
[2021-12-05] MEDS ORDERED: Dextrose 5% in Water 1,000 ML IV SCH (22:15)
[2021-12-05 22:32] LABS: Anion Gap 15 mmol/L (10-20); BUN (Urea Nitrogen) 27 mg/dL (8.4-25.7); Calc. Creatinine Clearance 44 mL/min (70-130); Calcium 8.8 mg/dL (7.8-10.44); Carbon Dioxide 23 mmol/L (23-31); Chloride 96 mmol/L (98-107); Estimated GFR 69; Glucose 123 mg/dL (83-110); Potassium 4.2 mmol/L (3.5-5.1); Sodium 130 mmol/L (136-145)
[2021-12-06] MEDS ORDERED: Melatonin 3 MG TAB PO SCH (00:30)
[2021-12-06 04:52] LABS: Anion Gap 14 mmol/L (10-20); BUN (Urea Nitrogen) 29 mg/dL (8.4-25.7); Calc. Creatinine Clearance 53 mL/min (70-130); Calcium 9.2 mg/dL (7.8-10.44); Carbon Dioxide 29 mmol/L (23-31); Chloride 94 mmol/L (98-107); Estimated GFR 85; Glucose 120 mg/dL (83-110); Magnesium 2.1 mg/dL (1.6-2.6); Potassium 4.2 mmol/L (3.5-5.1); Sodium 133 mmol/L (136-145)
[2021-12-06] MEDS: Levothyroxine 150 MCG TAB PO SCH (05:57)
[2021-12-06] MEDS ORDERED: Sodium Chloride 0.9% 500 ML IV SCH (09:30)
[2021-12-06] MEDS: Multivitamin W/ Minerals 1 TAB PO SCH (10:38)
[2021-12-06] MEDS: Aspirin 81 mg Enteric Coated Tablet PO SCH (10:39)
[2021-12-06] MEDS: metFORMIN XR 500 MG TAB PO SCH (10:40)
[2021-12-06] MEDS: Tamsulosin HCl 0.4 MG CAP PO SCH (10:40)
[2021-12-06] MEDS: Allopurinol 300 MG TAB PO SCH (10:41)
[2021-12-06] MEDS: Carbidopa/Levodopa CR 50-200 mg Tablet PO SCH ×2 (10:42→19:48)
[2021-12-06] MEDS: Acetaminophen 500 MG TAB PO PRN (10:44)
[2021-12-06] MEDS: Spironolactone 25 MG TAB PO SCH (10:45)
[2021-12-06] MEDS: Enoxaparin Sodium 40 MG/0.4 ML SYRINGE SC SCH (10:46)
[2021-12-06] MEDS: Potassium Chloride 10 MEQ TAB PO SCH (10:47)
[2021-12-06] MEDS ORDERED: Cosyntropin 250 MCG VIAL SLOW IVP SCH ×2 (13:00)
[2021-12-06] MEDS: Torsemide 100 MG TAB PO SCH (13:47)
[2021-12-06] MEDS ORDERED: Dextrose 5% in Water 1,000 ML IV PRN (17:59)
[2021-12-06] MEDS ORDERED: HumaLOG 300 UNITS/3 ML VIAL SC PRN (17:59)
[2021-12-06] MEDS ORDERED: Dextrose 50% Abboject 50 ML SYRINGE SLOW IVP PRN (17:59)
[2021-12-06] MEDS: Acetaminophen 500 MG TAB PO SCH (19:48)
[2021-12-06] MEDS: Rosuvastatin 5 MG TAB PO SCH (19:49)
[2021-12-06] MEDS: Magnesium Oxide 250 MG TAB PO SCH (19:49)
[2021-12-06] MEDS: Latanoprost 0.005% Ophth Soln 2.5 ml Bottle EA EYE SCH (19:51)
[2021-12-07 07:00] LABS: #Lymphocytes 0.2 thou/uL (1.20-3.40); #Monocytes 0.7 thou/uL (0.11-0.59); #Neutrophils 10.8 thou/uL (1.40-6.50); %Basophils 0.2 % (0.0-1.0); %Eosinophils 0.1 % (0.0-10.0); %Lymphocytes 1.7 % (21.0-51.0); %Monocytes 6.1 % (0.0-10.0); %Neutrophils 91.9 % (42.0-75.0); Hemoglobin 11.1 g/dL (14.0-18.0); Mean Corpuscular HGB CONC 32.8 g/dL (32.0-36.0); Mean Corpuscular Hemoglobin 30.1 pg (27.0-31.0); Mean Corpuscular Volume 91.7 fL (78.0-98.0); Mean Platelet Volume 6.5 fL (7.4-10.4); Platelet Count 183 thou/uL (130-400); RBC Distribution Width 14.3 % (11.5-14.5); White Blood Cell (WBC) Count 11.8 thou/uL (4.8-10.8)
[2021-12-07 07:27] LABS: Anion Gap 13 mmol/L (10-20); BUN (Urea Nitrogen) 29 mg/dL (8.4-25.7); Calc. Creatinine Clearance 60 mL/min (70-130); Calcium 8.9 mg/dL (7.8-10.44); Carbon Dioxide 26 mmol/L (23-31); Chloride 95 mmol/L (98-107); Estimated GFR 89; Glucose 132 mg/dL (83-110); Magnesium 1.9 mg/dL (1.6-2.6); Potassium 3.6 mmol/L (3.5-5.1); Sodium 130 mmol/L (136-145)
[2021-12-07] MEDS: Spironolactone 25 MG TAB PO SCH (09:21)
[2021-12-07] MEDS ORDERED: Potassium Chloride 20 MEQ TAB PO SCH (10:00)
[2021-12-07] MEDS ORDERED: Fludrocortisone Acetate 0.1 MG TAB PO SCH (10:00)
[2021-12-07] MEDS ORDERED: Sodium Chloride 0.9% 500 ML IV SCH (10:00)
[2021-12-07] MEDS ORDERED: Magnesium 2 GM/50 ML(in water) 2 GM in Premix Bag 1 BAG IVPB SCH (11:00)
[2021-12-07] MEDS: Potassium Chloride 10 MEQ TAB PO SCH ×2 (11:31→19:47)
[2021-12-07] MEDS: metFORMIN XR 500 MG TAB PO SCH (11:40)
[2021-12-07] MEDS: Torsemide 100 MG TAB PO SCH (11:40)
[2021-12-07] MEDS: Allopurinol 300 MG TAB PO SCH (11:41)
[2021-12-07] MEDS: Aspirin 81 mg Enteric Coated Tablet PO SCH (11:42)
[2021-12-07] MEDS: Carbidopa/Levodopa CR 50-200 mg Tablet PO SCH ×2 (11:43→19:47)
[2021-12-07] MEDS: Enoxaparin Sodium 40 MG/0.4 ML SYRINGE SC SCH (11:44)
[2021-12-07] MEDS: Fludrocortisone Acetate 0.1 MG TAB PO SCH (11:45)
[2021-12-07] MEDS: Multivitamin W/ Minerals 1 TAB PO SCH (11:46)
[2021-12-07] MEDS: Levothyroxine 150 MCG TAB PO SCH (16:30)
[2021-12-07] MEDS: HumaLOG 300 UNITS/3 ML VIAL SC PRN (18:34)
[2021-12-07] MEDS: Acetaminophen 500 MG TAB PO SCH (19:46)
[2021-12-07] MEDS: Magnesium Oxide 250 MG TAB PO SCH (19:47)
[2021-12-07] MEDS: Latanoprost 0.005% Ophth Soln 2.5 ml Bottle EA EYE SCH (19:47)
[2021-12-07] MEDS: Rosuvastatin 5 MG TAB PO SCH (19:47)
[2021-12-08 04:46] LABS: Anion Gap 12 mmol/L (10-20); BUN (Urea Nitrogen) 30 mg/dL (8.4-25.7); Calc. Creatinine Clearance 61 mL/min (70-130); Carbon Dioxide 25 mmol/L (23-31); Chloride 95 mmol/L (98-107); Estimated GFR 89; Glucose 131 mg/dL (83-110); Magnesium 2.2 mg/dL (1.6-2.6); Potassium 3.8 mmol/L (3.5-5.1); Sodium 128 mmol/L (136-145)
[2021-12-08] MEDS: Levothyroxine 150 MCG TAB PO SCH (05:06)
[2021-12-08 10:22] VITALS: BMI 19.3
[2021-12-08] MEDS: Allopurinol 300 MG TAB PO SCH (10:28)
[2021-12-08] MEDS: Fludrocortisone Acetate 0.1 MG TAB PO SCH ×2 (10:28→10:47)
[2021-12-08] MEDS: Carbidopa/Levodopa CR 50-200 mg Tablet PO SCH ×2 (10:28→21:08)
[2021-12-08] MEDS: Aspirin 81 mg Enteric Coated Tablet PO SCH (10:28)
[2021-12-08] MEDS: Multivitamin W/ Minerals 1 TAB PO SCH (10:28)
[2021-12-08] MEDS: Potassium Chloride 10 MEQ TAB PO SCH ×2 (10:28→21:07)
[2021-12-08] MEDS: Enoxaparin Sodium 40 MG/0.4 ML SYRINGE SC SCH (10:29)
[2021-12-08] MEDS: metFORMIN XR 500 MG TAB PO SCH (10:36)
[2021-12-08] MEDS: Acetaminophen 500 MG TAB PO PRN (10:37)
[2021-12-08] MEDS ORDERED: Furosemide 100 MG/10 ML VIAL SLOW IVP SCH (11:30)
[2021-12-08] MEDS ORDERED: Sodium Chloride 0.9% 1,000 ML IV SCH (11:30)
[2021-12-08] MEDS: HumaLOG 300 UNITS/3 ML VIAL SC PRN (11:46)
[2021-12-08] MEDS: Acetaminophen 500 MG TAB PO SCH (21:07)
[2021-12-08] MEDS: Magnesium Oxide 250 MG TAB PO SCH (21:07)
[2021-12-08] MEDS: Rosuvastatin 5 MG TAB PO SCH (21:08)
[2021-12-08] MEDS: Latanoprost 0.005% Ophth Soln 2.5 ml Bottle EA EYE SCH (21:08)
[2021-12-09 05:13] LABS: Anion Gap 13 mmol/L (10-20); BUN (Urea Nitrogen) 32 mg/dL (8.4-25.7); Calc. Creatinine Clearance 65 mL/min (70-130); Calcium 9.1 mg/dL (7.8-10.44); Carbon Dioxide 24 mmol/L (23-31); Chloride 99 mmol/L (98-107); Estimated GFR 91; Glucose 187 mg/dL (83-110); Potassium 4.1 mmol/L (3.5-5.1); Sodium 132 mmol/L (136-145)
[2021-12-09] MEDS: Levothyroxine 150 MCG TAB PO SCH (05:59)
[2021-12-09] MEDS ORDERED: Sodium Chloride 0.9% 1,000 ML IV SCH (08:00)
[2021-12-09 08:44] LABS: Magnesium 2.1 mg/dL (1.6-2.6)
[2021-12-09 09:01] LABS: #Basophils 0.1 thou/uL (0.0-0.2); #Eosinphils 0.1 thou/uL (0.0-0.7); #Lymphocytes 0.1 thou/uL (1.20-3.40); #Monocytes 0.6 thou/uL (0.11-0.59); #Neutrophils 6.5 thou/uL (1.40-6.50); %Basophils 0.7 % (0.0-1.0); %Eosinophils 1.1 % (0.0-10.0); %Lymphocytes 1.2 % (21.0-51.0); %Monocytes 7.8 % (0.0-10.0); %Neutrophils 89.2 % (42.0-75.0); Hemoglobin 11.1 g/dL (14.0-18.0); Mean Corpuscular HGB CONC 32.3 g/dL (32.0-36.0); Mean Corpuscular Hemoglobin 29.9 pg (27.0-31.0); Mean Corpuscular Volume 92.9 fL (78.0-98.0); Mean Platelet Volume 6.2 fL (7.4-10.4); Platelet Count 209 thou/uL (130-400); RBC Distribution Width 14.4 % (11.5-14.5); Red Blood Cell (RBC) Count 3.72 mill/uL (4.70-6.10); White Blood Cell (WBC) Count 7.3 thou/uL (4.8-10.8)
[2021-12-09] MEDS: Potassium Chloride 10 MEQ TAB PO SCH ×2 (09:31→20:17)
[2021-12-09] MEDS: Multivitamin W/ Minerals 1 TAB PO SCH (09:31)
[2021-12-09] MEDS: Fludrocortisone Acetate 0.1 MG TAB PO SCH ×2 (09:31→09:33)
[2021-12-09] MEDS: Tamsulosin HCl 0.4 MG CAP PO SCH (09:32)
[2021-12-09] MEDS: Allopurinol 300 MG TAB PO SCH (09:32)
[2021-12-09] MEDS: Carbidopa/Levodopa CR 50-200 mg Tablet PO SCH ×2 (09:32→20:18)
[2021-12-09] MEDS: metFORMIN XR 500 MG TAB PO SCH (09:32)
[2021-12-09] MEDS: Aspirin 81 mg Enteric Coated Tablet PO SCH (09:32)
[2021-12-09] MEDS ORDERED: Furosemide 100 MG/10 ML VIAL SLOW IVP SCH (15:00)
[2021-12-09] MEDS: Enoxaparin Sodium 40 MG/0.4 ML SYRINGE SC SCH (16:31)
[2021-12-09] MEDS: Magnesium Oxide 250 MG TAB PO SCH (20:17)
[2021-12-09] MEDS: Rosuvastatin 5 MG TAB PO SCH (20:17)
[2021-12-09] MEDS: Acetaminophen 500 MG TAB PO SCH (20:17)
[2021-12-09] MEDS: Latanoprost 0.005% Ophth Soln 2.5 ml Bottle EA EYE SCH (20:19)
[2021-12-10 04:50] LABS: Anion Gap 10 mmol/L (10-20); BUN (Urea Nitrogen) 23 mg/dL (8.4-25.7); Calc. Creatinine Clearance 73 mL/min (70-130); Calcium 8.8 mg/dL (7.8-10.44); Carbon Dioxide 24 mmol/L (23-31); Chloride 100 mmol/L (98-107); Estimated GFR 94; Glucose 133 mg/dL (83-110); Potassium 4.4 mmol/L (3.5-5.1); Sodium 130 mmol/L (136-145)
[2021-12-10] MEDS: Levothyroxine 150 MCG TAB PO SCH (05:50)
[2021-12-10] MEDS: Potassium Chloride 10 MEQ TAB PO SCH ×2 (10:06→20:59)
[2021-12-10] MEDS: Enoxaparin Sodium 40 MG/0.4 ML SYRINGE SC SCH (10:06)
[2021-12-10] MEDS: Multivitamin W/ Minerals 1 TAB PO SCH (10:07)
[2021-12-10] MEDS: Allopurinol 300 MG TAB PO SCH (10:07)
[2021-12-10] MEDS: Bumetanide 1 MG TAB PO SCH ×2 (10:07→16:47)
[2021-12-10] MEDS: Carbidopa/Levodopa CR 50-200 mg Tablet PO SCH ×2 (10:07→20:58)
[2021-12-10] MEDS: Fludrocortisone Acetate 0.1 MG TAB PO SCH (10:07)
[2021-12-10] MEDS: metFORMIN XR 500 MG TAB PO SCH (10:08)
[2021-12-10] MEDS: Aspirin 81 mg Enteric Coated Tablet PO SCH (10:08)
[2021-12-10] MEDS ORDERED: Empagliflozin 10 MG TAB PO SCH (11:45)
[2021-12-10] MEDS ORDERED: predniSONE 20 MG TAB PO SCH (11:45)
[2021-12-10] MEDS: Acetaminophen 500 MG TAB PO SCH (20:57)
[2021-12-10] MEDS: Latanoprost 0.005% Ophth Soln 2.5 ml Bottle EA EYE SCH (20:58)
[2021-12-10] MEDS: Magnesium Oxide 250 MG TAB PO SCH (20:58)
[2021-12-10] MEDS: Rosuvastatin 5 MG TAB PO SCH (20:59)
[2021-12-10] MEDS ORDERED: Bumetanide 1 MG TAB PO SCH (21:00)
[2021-12-11 05:10] LABS: Anion Gap 14 mmol/L (10-20); BUN (Urea Nitrogen) 29 mg/dL (8.4-25.7); Calc. Creatinine Clearance 64 mL/min (70-130); Calcium 9.4 mg/dL (7.8-10.44); Carbon Dioxide 28 mmol/L (23-31); Chloride 99 mmol/L (98-107); Estimated GFR 91; Glucose 164 mg/dL (83-110); Potassium 3.8 mmol/L (3.5-5.1); Sodium 137 mmol/L (136-145)
[2021-12-11] MEDS: Levothyroxine 150 MCG TAB PO SCH (06:10)
[2021-12-11 08:55] LABS: Magnesium 2.3 mg/dL (1.6-2.6)
[2021-12-11] MEDS: Enoxaparin Sodium 40 MG/0.4 ML SYRINGE SC SCH (10:50)
[2021-12-11] MEDS: Potassium Chloride 10 MEQ TAB PO SCH ×2 (10:52→20:32)
[2021-12-11] MEDS: Allopurinol 300 MG TAB PO SCH (10:52)
[2021-12-11] MEDS: Carbidopa/Levodopa CR 50-200 mg Tablet PO SCH ×2 (10:52→20:32)
[2021-12-11] MEDS: Multivitamin W/ Minerals 1 TAB PO SCH (10:52)
[2021-12-11] MEDS: Empagliflozin 10 MG TAB PO SCH (10:52)
[2021-12-11] MEDS: metFORMIN XR 500 MG TAB PO SCH (10:52)
[2021-12-11] MEDS: Fludrocortisone Acetate 0.1 MG TAB PO SCH (10:53)
[2021-12-11] MEDS: Aspirin 81 mg Enteric Coated Tablet PO SCH (10:53)
[2021-12-11] MEDS: Bumetanide 1 MG TAB PO SCH ×2 (11:01→19:07)
[2021-12-11] MEDS ORDERED: predniSONE 20 MG TAB PO SCH (12:00)
[2021-12-11] MEDS: Acetaminophen 500 MG TAB PO SCH (20:31)
[2021-12-11] MEDS: Magnesium Oxide 250 MG TAB PO SCH (20:32)
[2021-12-11] MEDS: Latanoprost 0.005% Ophth Soln 2.5 ml Bottle EA EYE SCH (20:32)
[2021-12-11] MEDS: Rosuvastatin 5 MG TAB PO SCH (20:32)
[2021-12-12 05:01] LABS: Anion Gap 14 mmol/L (10-20); BUN (Urea Nitrogen) 36 mg/dL (8.4-25.7); Calc. Creatinine Clearance 58 mL/min (70-130); Calcium 9.8 mg/dL (7.8-10.44); Carbon Dioxide 29 mmol/L (23-31); Chloride 99 mmol/L (98-107); Estimated GFR 88; Glucose 163 mg/dL (83-110); Potassium 4.4 mmol/L (3.5-5.1); Sodium 138 mmol/L (136-145)
[2021-12-12] MEDS: Levothyroxine 150 MCG TAB PO SCH (07:22)
[2021-12-12] MEDS ORDERED: Bumetanide 1 MG TAB PO SCH ×2 (07:30→12:15)
[2021-12-12] MEDS: Potassium Chloride 10 MEQ TAB PO SCH (10:01)
[2021-12-12] MEDS: Aspirin 81 mg Enteric Coated Tablet PO SCH (10:01)
[2021-12-12] MEDS: Enoxaparin Sodium 40 MG/0.4 ML SYRINGE SC SCH (10:01)
[2021-12-12] MEDS: Tamsulosin HCl 0.4 MG CAP PO SCH (10:01)
[2021-12-12] MEDS: Fludrocortisone Acetate 0.1 MG TAB PO SCH (10:01)
[2021-12-12] MEDS: Carbidopa/Levodopa CR 50-200 mg Tablet PO SCH (10:01)
[2021-12-12] MEDS: Allopurinol 300 MG TAB PO SCH (10:02)
[2021-12-12] MEDS: Multivitamin W/ Minerals 1 TAB PO SCH (10:02)
[2021-12-12] MEDS: Empagliflozin 10 MG TAB PO SCH (10:02)
[2021-12-12] MEDS: metFORMIN XR 500 MG TAB PO SCH (10:04)
[2021-12-12] MEDS ORDERED: predniSONE 20 MG TAB PO SCH (12:00)
[2021-12-12 12:35] VITALS: BP 111/66; TEMP 98
[2021-12-13] MEDS ORDERED: Bumetanide 1 MG TAB PO SCH (07:30)
[2021-12-13] MEDS ORDERED: Potassium Chloride 10 MEQ TAB PO SCH (08:00)
[2021-12-13] MEDS ORDERED: predniSONE 5 MG TAB PO SCH (12:00)
== END 2021-12-12 14:30 | disposition home health service (06) | DRG 640 ==
LOC: 2NO 18:33
PROVIDERS: ADMIT Family Medicine; ATTEND Internal Medicine
DX: E87.1 Hypo-osmolality and hyponatremia (principal); E43 Unspecified severe protein-calorie malnutrition; Z68.1 Body mass index [BMI] 19.9 or less, adult; R64 Cachexia; I50.32 Chronic diastolic (congestive) heart failure; I25.10 Atherosclerotic heart disease of native coronary artery without angina pectoris; E03.9 Hypothyroidism, unspecified; E78.5 Hyperlipidemia, unspecified; G20 Parkinson's disease; N18.2 Chronic kidney disease, stage 2 (mild); I48.0 Paroxysmal atrial fibrillation; E11.40 Type 2 diabetes mellitus with diabetic neuropathy, unspecified; I87.2 Venous insufficiency (chronic) (peripheral); I95.89 Other hypotension; R54 Age-related physical debility; E11.22 Type 2 diabetes mellitus with diabetic chronic kidney disease; E86.1 Hypovolemia; I08.1 Rheumatic disorders of both mitral and tricuspid valves; R00.0 Tachycardia, unspecified; Z88.5 Allergy status to narcotic agent; Z88.8 Allergy status to other drugs, medicaments and biological substances; Z79.899 Other long term (current) drug therapy; Z79.82 Long term (current) use of aspirin; Z79.890 Hormone replacement therapy; I25.2 Old myocardial infarction; Z95.1 Presence of aortocoronary bypass graft; Z98.890 Other specified postprocedural states; Z83.3 Family history of diabetes mellitus; Z82.49 Family history of ischemic heart disease and other diseases of the circulatory system; Z86.74 Personal history of sudden cardiac arrest; Z80.8 Family history of malignant neoplasm of other organs or systems
CPT/HCPCS: 36415; 36416; 71045; 80048; 80053; 80400; 82040; 83735; 83880; 83930; 83935; 84134; 84300; 84436; 84442; 84443; 84481; 84482; 85025; 86140; 93005; 93010; 93306; J0834; J1650; J1815; J1940; J3475; J3490; J7030; J7050; J7070; J7120; J7512; U0002; U0003; U0005

== ENCOUNTER 2022-03-05 07:47 | Observation (INO) | payer MEDICARE ==
[2022-03-05 08:47] LABS: Bilirubin Negative (Negative); Blood, Urine Negative (Negative); Clarity Clear (Clear); Glucose, Urine (Dipstick) 500 mg/dL (Negative); Ketone, Urine Negative (Negative); Leukocyte Negative Leu/uL (Negative); Nitrite Negative (Negative); Protein, Urine (Dipstick) 10 mg/dL (Neg-Trace); Specific Gravity, Urine 1.009 (1.002-1.036); Urobilinogen Normal mg/dL (Less than 2); pH, Urine 7.5 (5.0-9.0)
[2022-03-05 09:21] LABS: #Lymphocytes 0.2 thou/uL (1.20-3.40); #Monocytes 0.4 thou/uL (0.11-0.59); %Eosinophils 0.1 % (0.0-10.0); %Lymphocytes 5.7 % (21.0-51.0); %Monocytes 11.4 % (0.0-10.0); %Neutrophils 82.9 % (42.0-75.0); Hemoglobin 12.9 g/dL (14.0-18.0); Mean Corpuscular Hemoglobin 23.6 pg (27.0-31.0); Mean Corpuscular Volume 78.7 fl (78.0-98.0); Platelet Count 201 thou/uL (130-400); RBC Distribution Width 17.1 % (11.5-14.5); Red Blood Cell (RBC) Count 5.47 mill/uL (4.70-6.10); White Blood Cell (WBC) Count 3.6 thou/uL (4.8-10.8)
[2022-03-05 09:43] LABS: ALT (SGPT) 29 U/L (8-55); AST (SGOT) 52 U/L (5-34); Albumin 3.5 g/dL (3.4-4.8); Alkaline Phosphatase 120 U/L (40-110); Anion Gap 15 mmol/L (10-20); BUN (Urea Nitrogen) 35 mg/dL (8.4-25.7); Bilirubin, Total 0.4 mg/dL (0.2-1.2); CK (CPK) 97 U/L (30-200); Calc. Creatinine Clearance 0 mL/min (70-130); Calcium 9.2 mg/dL (7.8-10.44); Carbon Dioxide 34 mmol/L (23-31); Chloride 86 mmol/L (98-107); Estimated GFR 70; Globulin 2.9 g/dL (2.4-3.5); Glucose 115 mg/dL (83-110); Magnesium 2.5 mg/dL (1.6-2.6); Protein, Total 6.4 g/dL (5.8-8.1); Sodium 132 mmol/L (136-145)
[2022-03-05 09:50] LABS: Potassium 2.7 mmol/L (3.5-5.1)
[2022-03-05 10:03] LABS: Anisocytosis SLIGHT = 6-15 cells (100X) (0-5/hpf); Hypochromia SLIGHT = 6-15 cells (100X) (0-5/hpf); MDiff Complete? YES; Ovalocytes SLIGHT = 2-5 cells (100X) (0-1/hpf); Platelet Morphology Comment Appears Adequate
[2022-03-05] MEDS ORDERED: Ondansetron PF 4 MG/2 ML Vial ONE (10:17)
[2022-03-05] MEDS ORDERED: Potassium Chloride 20 MEQ/100 ML PREMIX BAG ONE ×2 (10:21)
[2022-03-05] MEDS ORDERED: Acetaminophen 650 MG Suppository ONE (12:09)
[2022-03-05] MEDS ORDERED: Acetaminophen 650 MG Suppository PR PRN (15:51)
[2022-03-05] MEDS ORDERED: Ondansetron ODT 4 MG TAB PO PRN (15:51)
[2022-03-05] MEDS ORDERED: Ondansetron PF 4 MG/2 ML Vial IVP PRN (15:51)
[2022-03-05 18:44] VITALS: BMI 21.9
[2022-03-05] MEDS ORDERED: Tamsulosin HCl 0.4 MG CAP PO SCH (20:00)
[2022-03-05] MEDS: NS 0.9% w/ 40 MEQ KCL 1,000 ML IV SCH (21:17)
[2022-03-05 21:23] LABS: Anion Gap 11 mmol/L (10-20); BUN (Urea Nitrogen) 30 mg/dL (8.4-25.7); Calc. Creatinine Clearance 61 mL/min (70-130); Calcium 8.6 mg/dL (7.8-10.44); Carbon Dioxide 32 mmol/L (23-31); Chloride 92 mmol/L (98-107); Estimated GFR 87; Glucose 137 mg/dL (83-110); Magnesium 2.5 mg/dL (1.6-2.6); Sodium 132 mmol/L (136-145)
[2022-03-05 21:34] LABS: Potassium 2.9 mmol/L (3.5-5.1)
[2022-03-05] MEDS ORDERED: Electrolyte Replacement Protocol 1 EACH FS SCH (21:45)
[2022-03-05] MEDS: Latanoprost 0.005% Ophth Soln 2.5 ml Bottle EA EYE SCH (22:17)
[2022-03-05] MEDS ORDERED: Carbidopa/Levodopa 25-100 mg Tablet PO SCH (23:00)
[2022-03-05] MEDS: Acetaminophen 325 MG TAB PO PRN (23:12)
[2022-03-05] MEDS: Potassium Chloride 20 MEQ TAB PO SCH (23:13)
[2022-03-06] MEDS: Potassium Chloride 20 MEQ TAB PO SCH (02:50)
[2022-03-06 04:45] LABS: Anion Gap 12 mmol/L (10-20); BUN (Urea Nitrogen) 29 mg/dL (8.4-25.7); Calc. Creatinine Clearance 74 mL/min (70-130); Calcium 8.7 mg/dL (7.8-10.44); Carbon Dioxide 29 mmol/L (23-31); Chloride 95 mmol/L (98-107); Estimated GFR 92; Glucose 83 mg/dL (83-110); Potassium 3.2 mmol/L (3.5-5.1); Sodium 133 mmol/L (136-145)
[2022-03-06 05:11] LABS: Band 8 % (5-11); Eosinophils 4 % (0-10); Hemoglobin 11.1 g/dL (14.0-18.0); Hypochromia SLIGHT = 6-15 cells (100X) (0-5/hpf); Lymphocytes 12 % (21-51); MDiff Complete? YES; Mean Corpuscular HGB CONC 30.1 g/dL (32.0-36.0); Mean Corpuscular Volume 79.6 fl (78.0-98.0); Mean Platelet Volume 7.8 fL (7.4-10.4); Monocytes 16 % (0-10); Neutrophil 60 % (42-75); Platelet Count 172 thou/uL (130-400); Platelet Morphology Comment Appears Adequate; RBC Distribution Width 16.9 % (11.5-14.5); Red Blood Cell (RBC) Count 4.65 mill/uL (4.70-6.10); White Blood Cell (WBC) Count 1.9 thou/uL (4.8-10.8)
[2022-03-06] MEDS: NS 0.9% w/ 40 MEQ KCL 1,000 ML IV SCH ×2 (06:32→17:56)
[2022-03-06] MEDS: Aspirin 81 mg Enteric Coated Tablet PO SCH (09:35)
[2022-03-06] MEDS: Allopurinol 300 MG TAB PO SCH (09:35)
[2022-03-06] MEDS: Carbidopa/Levodopa 25-100 mg Tablet PO SCH ×2 (09:35→21:04)
[2022-03-06] MEDS ORDERED: Dextrose 5% in Water 1,000 ML IV PRN (18:34)
[2022-03-06] MEDS ORDERED: HumaLOG 300 UNITS/3 ML VIAL SC PRN (18:34)
[2022-03-06] MEDS ORDERED: Dextrose 50% Abboject 50 ML SYRINGE SLOW IVP PRN (18:34)
[2022-03-06] MEDS ORDERED: Rosuvastatin 5 MG TAB PO SCH (21:00)
[2022-03-06] MEDS: Latanoprost 0.005% Ophth Soln 2.5 ml Bottle EA EYE SCH (21:04)
[2022-03-06] MEDS: Acetaminophen 325 MG TAB PO PRN (21:25)
[2022-03-07] MEDS: Acetaminophen 325 MG TAB PO PRN ×2 (01:23→05:28)
[2022-03-07] MEDS ORDERED: Levothyroxine Sodium 125 MCG TAB PO SCH (06:00)
[2022-03-07 08:33] VITALS: TEMP 97.6
[2022-03-07 08:41] LABS: Hemoglobin 11.5 g/dL (14.0-18.0); Mean Corpuscular HGB CONC 29.7 g/dL (32.0-36.0); Mean Corpuscular Hemoglobin 23.5 pg (27.0-31.0); Mean Platelet Volume 9.2 fL (7.4-10.4); Platelet Count 135 thou/uL (130-400); RBC Distribution Width 17.4 % (11.5-14.5); Red Blood Cell (RBC) Count 4.91 mill/uL (4.70-6.10); White Blood Cell (WBC) Count 2.6 thou/uL (4.8-10.8)
[2022-03-07] MEDS: Torsemide 100 MG TAB PO SCH ×2 (08:41→14:14)
[2022-03-07] MEDS: NS 0.9% w/ 40 MEQ KCL 1,000 ML IV SCH (08:41)
[2022-03-07] MEDS: Allopurinol 300 MG TAB PO SCH (08:42)
[2022-03-07] MEDS: Aspirin 81 mg Enteric Coated Tablet PO SCH (08:42)
[2022-03-07] MEDS: Carbidopa/Levodopa 25-100 mg Tablet PO SCH (08:42)
[2022-03-07 08:55] LABS: Anion Gap 12 mmol/L (10-20); BUN (Urea Nitrogen) 21 mg/dL (8.4-25.7); Calc. Creatinine Clearance 72 mL/min (70-130); Calcium 8.4 mg/dL (7.8-10.44); Carbon Dioxide 21 mmol/L (23-31); Chloride 104 mmol/L (98-107); Estimated GFR 92; Glucose 66 mg/dL (83-110); Potassium 4.8 mmol/L (3.5-5.1); Sodium 132 mmol/L (136-145)
[2022-03-07] MEDS ORDERED: Ascorbic Acid 500 mg Chewable Tablet PO SCH (09:00)
[2022-03-07] MEDS ORDERED: metFORMIN 500 MG TAB PO SCH (09:00)
[2022-03-07] MEDS ORDERED: Zinc Sulfate 220 MG CAP PO SCH (09:00)
[2022-03-07] MEDS ORDERED: Potassium Chloride 10 MEQ TAB PO SCH (09:00)
[2022-03-07] MEDS ORDERED: Empagliflozin 10 MG TAB PO SCH (09:00)
[2022-03-07 09:03] LABS: Band 8 % (5-11); Eosinophils 3 % (0-10); Hypochromia SLIGHT = 6-15 cells (100X) (0-5/hpf); Lymphocytes 10 % (21-51); MDiff Complete? YES; Monocytes 10 % (0-10); Neutrophil 69 % (42-75); Platelet Morphology Comment Appears Adequate; Polychromasia SLIGHT = 2-3 cells (100X) (0-2/hpf)
[2022-03-07 12:27] VITALS: BP 123/75
[2022-03-08] MEDS ORDERED: FLU VACC QS2022-23(65YR UP)/PF 240 MCG/0.7 ML SYRINGE IM ONE (09:00)
== END 2022-03-07 15:45 | disposition home or self-care (01) ==
LOC: ERS 07:47 → 2NO 15:39 → INTOOBSV 15:39 → T4-B 03-06 15:01
PROVIDERS: ADMIT Internal Medicine; ATTEND Internal Medicine
DX: U07.1 COVID-19 (principal); G20 Parkinson's disease; N40.0 Benign prostatic hyperplasia without lower urinary tract symptoms; I13.0 Hypertensive heart and chronic kidney disease with heart failure and stage 1 through stage 4 chronic kidney disease, or unspecified chronic kidney disease; E11.22 Type 2 diabetes mellitus with diabetic chronic kidney disease; N18.9 Chronic kidney disease, unspecified; I50.32 Chronic diastolic (congestive) heart failure; E03.9 Hypothyroidism, unspecified; E87.6 Hypokalemia; R13.10 Dysphagia, unspecified; I25.2 Old myocardial infarction; M10.9 Gout, unspecified; E78.5 Hyperlipidemia, unspecified; I47.1 Supraventricular tachycardia; I70.0 Atherosclerosis of aorta; R29.6 Repeated falls; E87.1 Hypo-osmolality and hyponatremia; Z85.46 Personal history of malignant neoplasm of prostate; Z87.891 Personal history of nicotine dependence; Z79.82 Long term (current) use of aspirin; Z79.84 Long term (current) use of oral hypoglycemic drugs; Z79.899 Other long term (current) drug therapy; Z95.1 Presence of aortocoronary bypass graft; Z95.810 Presence of automatic (implantable) cardiac defibrillator; W19.XXXA Unspecified fall, initial encounter; M79.605 Pain in left leg; M79.604 Pain in right leg
CPT/HCPCS: 70450; 71045; 72125; 72170; 80048 ×3; 81003; 82550; 82962 ×2; 83605; 83735; 84439; 84484; 85025 ×2; 85379; 87040; 93005; 93970; 94760; 96374; 97110 ×2; 97116; 97139; 97530 ×2; 97535; 99285; G0378 ×3; U0003; U0005; 36415; 36416; 80053; 84443; J2405; J3480

== ENCOUNTER 2023-05-24 09:21 | Outpatient (CLI) | payer MEDICARE ==
[2023-05-24 10:48] LABS: Hematocrit 47.9 % (38.8-50.0); Mean Corpuscular HGB CONC 33.4 g/dL (32.0-36.0); Mean Corpuscular Hemoglobin 29.9 pg (27.0-33.0); Mean Corpuscular Volume 89.5 fl (81.2-95.1); Mean Platelet Volume 8.5 fl (7.4-10.4); Platelet Count 198 10x3/uL (150-450); RBC Distribution Width 15.1 % (11.5-14.5); Red Blood Cell (RBC) Count 5.35 10x6/uL (4.32-5.72); White Blood Cell (WBC) Count 9.2 10x3/uL (3.5-10.5)
[2023-05-24 11:06] LABS: Anion Gap 15 mmol/L (10-20); BUN (Urea Nitrogen) 36 mg/dL (8.4-25.7); Calc. Creatinine Clearance 0 mL/min (70-130); Carbon Dioxide 29 mmol/L (23-31); Chloride 94 mmol/L (98-107); Estimated GFR 72; Glucose 153 mg/dL (83-110); Potassium 4.5 mmol/L (3.5-5.1); Sodium 133 mmol/L (136-145)
== END 2023-05-24 09:22 | disposition home or self-care (01) ==
LOC: LABBT 09:21
PROVIDERS: ATTEND Thoracic Surgery (Cardiothoracic Vascular Surgery)
DX: Z01.818 Encounter for other preprocedural examination (principal); T82.218A Other mechanical complication of coronary artery bypass graft, initial encounter
CPT/HCPCS: 80048; 85027; 93005; 93010

== ENCOUNTER 2025-04-07 14:05 | Outpatient (CLI) | payer MEDICARE | END 2025-04-07 14:06 | disposition home or self-care (01) | LOC: RAD 14:05 | PROVIDERS: ATTEND Thoracic Surgery (Cardiothoracic Vascular Surgery) | DX: I25.10 Atherosclerotic heart disease of native coronary artery without angina pectoris (principal); Z95.1 Presence of aortocoronary bypass graft | CPT/HCPCS: 71046 ==

== ENCOUNTER 2025-04-08 13:48 | Outpatient (CLI) | payer MEDICARE ==
[2025-04-08 15:12] LABS: #Basophils Less than 0.03 10x3/uL (0.0-0.2); #Eosinophils 0.08 10x3/uL (0.0-0.7); #Monocytes 0.83 10x3/uL (0.11-0.59); #Neutrophils 6.67 10x3/uL (1.40-6.50); %Basophils 0.3 % (0.0-1.0); %Eosinophils 1.0 % (0.0-10.0); %Lymphocytes 4.4 % (21.0-51.0); %Monocytes 10.4 % (0.0-10.0); %Neutrophils 83.4 % (42.0-75.0); Hematocrit 47.4 % (42.0-52.0); Hemoglobin 15.4 g/dL (14.0-18.0); Mean Corpuscular Hemoglobin 30.6 pg (27.0-31.0); Mean Corpuscular Volume 94.2 fL (78.0-98.0); Platelet Count 185 10x3/uL (130-400); Red Blood Cell (RBC) Count 5.03 mill/uL (4.70-6.10); White Blood Cell (WBC) Count 7.99 10x3/uL (4.8-10.8)
[2025-04-08 15:37] LABS: Anion Gap 17 mmol/L (10-20); BUN (Urea Nitrogen) 40 mg/dL (8.4-25.7); Calc. Creatinine Clearance 0 mL/min (70-130); Calcium 10.0 mg/dL (7.8-10.44); Carbon Dioxide 31 mmol/L (23-31); Chloride 91 mmol/L (98-107); Glucose 155 mg/dL (83-110); Potassium 4.2 mmol/L (3.5-5.1); Sodium 135 mmol/L (136-145)
== END 2025-04-08 13:49 | disposition home or self-care (01) ==
LOC: LABBT 13:48
PROVIDERS: ATTEND Thoracic Surgery (Cardiothoracic Vascular Surgery)
DX: Z01.818 Encounter for other preprocedural examination (principal); R07.89 Other chest pain
CPT/HCPCS: 80048; 85025; 93005; 93010